=== PATIENT | female | born 1970 | race Caucasian/White ===

== ENCOUNTER → 2020-01-01 09:20 | Outpatient (CLI) | payer BC, SELFPAY ==
--- NOTE | ~2020-01-01 | CT_ITS ---
EXAMINATION: CT abdomen pelvis wo con EXAM DATE: 01/01/2020 09:35 INDICATION: Umbilical hernia without obstruction or gangrene. Prior surgery for hernia. Cholecystecto my and gastric sleeve procedure. TECHNIQUE: Spiral CT of the abdomen and pelvis was performed without contrast. Axial, coronal and s agittal images were reviewed. The dose-length product (DLP) for this examination was 522.94 mGy-cm. The exposure was tailored according to patient size (auto mA exposure control), and iterative recons truction (ASIR) was used as additional dose reduction technique. Comparison is made to prior examinat ion from 12/12/2017. FINDINGS: Anterior abdominal wall mesh material identified, no evidence of hernia recurrence. The lar gest liver cyst is in the left liver lobe lateral segment, measures 3.4 cm. The spleen, pancreas, an d adrenal glands are unremarkable. There are cholecystectomy clips. There is no nephrolithiasis or hydronephrosis. There is IUD which appears to be centrally located within the endometrium, expected position. The bladder is undistended at time of imaging. There is no retroperitoneal or pelvic lym phadenopathy. The appendix is normal. There are surgical changes consistent with gastric sleeve procedure, suture material along the greater curvature of the stomach. There is moderate amount of colonic stool. No free intraperitoneal gas. The heart is normal in size. There are no pericardial or pleural effusi ons. The lung bases are unremarkable. The bones are unremarkable. IMPRESSION: 1. Moderate amount of colonic stool. 2. Surgical changes. Reviewed, dictated and finalized at location B.
== END ==
PROVIDERS: Visit Provider Surgery Plastic and Reconstructive Surgery
DX: K42.9 Umbilical hernia without obstruction or gangrene (principal)
CPT/HCPCS: 74176

== ENCOUNTER 2020-01-22 14:57 | Outpatient (CLI) | payer BC, SELFPAY ==
--- NOTE | ~2020-01-22 | MM_ITS ---
EXAMINATION: MM screening aaron BI w lizeth HISTORY: Screening TECHNIQUE: Craniocaudal and mediolateral oblique 3-D tomosynthesis images were obtained and synthetic 2-D images were generated. CAD analysis was submitted and interpreted. COMPARISON: Comparison to multiple prior studies sequentially, with oldest reviewed study dated 07/26. BREAST PARENCHYMAL COMPOSITION: The breasts are heterogenously dense, which may obscure small masses. FINDINGS: There is no evidence of suspicious mass, calcification, or architectural distortion to sugg est malignancy in either breast. There has been no suspicious interval change. IMPRESSION: 1. No mammographic evidence of malignancy. 2. Recommend routine screening mammography in one year. BI-RADS Category 1: Negative Reviewed, dictated and finalized at location A.
== END 2020-01-22 14:58 | disposition home or self-care (01) ==
LOC: ANHIMG 15:01
PROVIDERS: PCP Nurse Practitioner Adult Health; Referring Provider Surgery Plastic and Reconstructive Surgery; Visit Provider Obstetrics & Gynecology
DX: Z12.31 Encounter for screening mammogram for malignant neoplasm of breast (principal)
CPT/HCPCS: 77063; 77067

== ENCOUNTER 2020-02-21 14:55 | Outpatient (CLI) | payer OTHER, SELFPAY ==
--- NOTE | 2020-02-21 14:56 | ECG_ITS ---
Measurements Intervals [place] Rate: 73 P: 2 NC: 124 QRS: -10 QRSD: 99 T: 15 QT: 379 QTc: 420 Interpretive Statements SINUS RHYTHM INCOMPLETE RIGHT BUNDLE BRANCH BLOCK DELAYED PRECORDIAL R/S TRANSITION BASELINE ARTIFACT- I, II, III, AVR, AVL, AVF BORDERLINE ECG Electronically Signed On 02-21-2020 16:48:40 CDT by Juilo Leija D.O.
[2020-02-21 15:30] LABS: Hematocrit 36.8 % (37.0-47.0); Hemoglobin 12.2 g/dL (12.0-15.0)
[2020-02-21 15:42] LABS: Albumin Level 3.8 g/dL (3.5-5.1)
[2020-02-21 15:52] LABS: Prealbumin 26.6 mg/dL (17.6-36.0)
[2020-02-21 16:57] LABS: Iron 84 ug/dL (37-170)
[2020-02-27 13:15] LABS: Vitamin B1 15 nmol/L (8-30)
== END 2020-02-21 14:56 | disposition home or self-care (01) ==
LOC: ANHSURGERY 14:56
PROVIDERS: Anesthesiology; PCP Nurse Practitioner Adult Health; Visit Provider Surgery Plastic and Reconstructive Surgery
DX: L57.4 Cutis laxa senilis (principal); Z01.818 Encounter for other preprocedural examination
CPT/HCPCS: 36415; 82040; 83540; 84134; 84425; 85014; 85018; 93005

== ENCOUNTER 2020-02-26 00:25 | Outpatient (CLI) | payer SELFPAY ==
[2020-02-26 19:00] LABS: SARS-CoV-2 RNA PCR Negative
== END 2020-02-26 00:26 | disposition home or self-care (01) ==
LOC: ANHCOVIDDT 00:25
PROVIDERS: PCP Nurse Practitioner Adult Health; Visit Provider Surgery Plastic and Reconstructive Surgery
DX: Z01.812 Encounter for preprocedural laboratory examination (principal); Z11.59 Encounter for screening for other viral diseases
CPT/HCPCS: 87635; C9803; U0003

== ENCOUNTER 2020-02-28 00:01 | Day surgery (SDC) | payer OTHER, SELFPAY ==
[2020-02-18 15:18] VITALS: BMI 26.4
[2020-02-28] VITALS (13 sets, daily range): BP systolic 108–173; BP diastolic 74–105; PULSE 74–93; RESP 12–20; TEMP 36.3–36.9; O2SAT 91–100
[2020-02-28 09:55] LABS: Urine Cotinine NEGATIVE
[2020-02-28] MEDS: LACTATED RINGERS 1,000 ML 30 ML IV CONT ×2 (09:55→17:33)
--- NOTE | 2020-02-28 09:57 | WPDANESEPPF ---
Anes - Initial Pre Proc Eval Procedure: Operation Date: 02/28/20 11:30 Proposed Procedures p Edith De Lis Abdominoplasty - Dimitry Saez MD s Bilateral Mastopexy With Galaflex - Dimitry Saez MD Date/Time: 02/28/20 09:57 Surgeon: Dimitry Saez MD Pre Op Diagnosis: Skin Laxity Patient Data Age: 49 Gender: F Height: 5 ft Weight: 61.5 kg Allergies Allergy/AdvReac Type Severity Reaction Status Date / Time aspirin Allergy Severe Swelling Verified 02/18/20 15:08 of Lip/Tongue/Throat ketorolac Allergy Severe Swelling Verified 02/18/20 15:08 of Lip/Tongue/Throat ibuprofen Allergy Swelling Verified 02/18/20 15:08 of Lip/Tongue/Throat Home Medications Medication Instructions Recorded Confirmed Type bupropion HCl 150 mg tablet,12 hr 150 mg PO DAILY 09/10/19 02/18/20 History sustained-release fingolimod 0.5 mg capsule 0.5 mg PO DAILY 09/10/19 02/18/20 History liraglutide (weight loss) 3 mg/0.5 3 mg SUB-Q DAILY 09/10/19 02/18/20 History mL (18 mg/3 mL) subcut pen injector oxybutynin chloride 10 mg 10 mg PO DAILY 09/10/19 02/18/20 History tablet,extended release 24 hr levothyroxine 100 mcg tablet 100 mcg PO DAILY #90 tablet 01/02/20 02/18/20 Rx docusate sodium 100 mg capsule 100 mg PO DAILY #14 cap 02/19/20 Rx oxycodone-acetaminophen 5 mg-325 1 tablet PO Q6H PRN #15 tablet 02/20/20 02/20/20 Rx mg tablet Laboratory Tests 02/28/20 09:34 Cotinine Negative Patient hx anesthesia problems: post op nausea/vomiting Family hx anesthesia problems: none PMFSH Past Medical History Medical History Anxiety Hypothyroid Multiple sclerosis Surgical History Surgical History History of 2 sections 2004, 2006 History of cholecystectomy 2018 History of gastric restrictive surgery 2010 History of hernia repair 2018 History of hip surgery 2019 Family History Family History Other Hypertension Social History Social History Smoking status: Never smoker Alcohol intake: current Substance use: never Living arrangements: with family Spiritual care concerns: No Anes - Eval Final PreProcedure Day of Procedure 02/28/20 09:57 Patient weight: normal Heart: regular rate and rhythm Lungs: clear to auscultation Airway: Mallampati scale class II Neurological: alert and oriented Last oral intake: >/= 8 hours ASA classification: III Emergent: no Anesthetic plan: proceed Anesthesia type and monitoring: general LMA and standard monitoring Informed Consent: The patient's anesthetic plan and its attendant risks and benefits were discussed with the patient/family/POA. Questions were solicited and answers provided to the satisfaction of the patient/family/POA.
[2020-02-28] MEDS: SCOPOLAMINE 1.5 MG PATCH TRANSDERM (10:00)
--- NOTE | 2020-02-28 10:31 | SUR.PREOP ---
PT INFORMED OF DELAY W/SURGEON/ACKNOWLEDGES UNDERSTANDING/COMFORT MEASURES PROVIDED.
--- NOTE | 2020-02-28 10:35 | SUR.PREOP ---
AMBULATED TO BATHROOM W/MINIMAL ASSISTANCE
--- NOTE | 2020-02-28 11:54 | WPDHPUPDATE1 ---
History and Physical Update Update Date/Time: 02/28/20 11:54 History and Physical has been reviewed, including an updated exam of the patient. There are NO changes in the patient's condition. Risks, benefits, and alternatives have been discussed and questions answered. Patient agrees to proceed with procedure.
--- NOTE | 2020-02-28 12:11 | SUR.PREOP ---
1200; IN ROOM WHILE DR CHE MARKED PT
--- NOTE | 2020-02-28 12:24 | PM.PROC ---
Procedure Note - Detailed Date of procedure: 02/28/20 Pre-op diagnosis: Skin Laxity Post-op diagnosis: same Procedure performed: 1. Bilateral mastopexy with Galaflex 2. Edith shore abdominoplasty. Description of procedure: Risks, benefits, alternatives were discussed in extensive detail. I want her to be very realistic about the risks involved as well as expectations. Made sure answered of her questions to her satisfaction and consent obtained. Patient was marked in the preoperative holding area with her verification. She was taken to the operating room placed supine on the operating room table. Anesthesia was provided by anesthesiology and prepped and draped in a standard sterile fashion. Surgical time-out was taken. 1% lidocaine and 0.25% Marcaine with epinephrine was used to do a field block as of breast. I verified my markings and tailor tacked the breast into position. I placed the patient in a sitting position. Marked out the nipple-areolar complex based on her preoperative markings intraoperative observations and measurements which were all in full agreement. Once I was confident with these markings Patient was placed supine. I de-epithelialized the superior medial pedicle. I de-epithelialized the remainder of that tissue as well. I did an auto augmentation flap using the inferior portion of the breast on the intercostal perforators which was tacked to the chest wall and sutured into place with 2-0 PDS. I then elevated medial and lateral flaps. Copiously irrigated with saline solution and verified a strict hemostasis. Galaflex was soaked in a Betadine antibiotic solution. It was trimmed as necessary and tacked into place with 2-0 Vicryl. I then tailor tacked the breast into place. I closed using 2-0 Vicryl, 3-0 strata fix along the IMF and 3-0 Monocryl along the vertical as around the areola. I then ran everything with a running subcuticular 4-0 Monocryl and tissue glue. I placed the patient in a flexed position to verify the upper and lower markings would reach. I then placed her supine. A thorough abdominal examination was completed. Stab incisions were made and used tumescent solution. A 10 blade was used to make the upper incision. I continued dissection down to the level of fascia. Elevated just what was necessary for repair of the diastasis and discontinuous undermining otherwise. I resected the plan vertical resection with the taco abdominoplasty this was repaired with 2-0 Vicryl followed by 3-0 Monocryl. I then again flexed the bed to verify the upper skin flap would reach the lower markings without tension. Once verified I placed her supine once again and a 10 blade used to make the lower incision. I elevated up to level the umbilicus and left the umbilicus intact on a well-vascularized stalk. The intervening tissue was removed. A 2 mm blunt cannula and Exparel which was mixed 20 cc in 100 cc for a total volume of 120 cc I injected deep to the fascia bilaterally as well as along the incision lines. I plicated the diastasis recti using 0 PDO stratafix barbed suture. This was in 2 separate layers using 2 separate sutures as well. I repaired around the umbilicus leaving plenty of room for well-vascularized stalk of the umbilicus with 2-0 PDS. The patient was flexed and starting from superior to inferior began plication using 2-0 Vicryl to obliterate all space in a standard progressive tension fashion. At the umbilicus I marked out the location of the skin and inset this with 3-0 Monocryl and 4-0 nylon. I continued the remainder of the plication using 2-0 Vicryl until I reached my lower planned scar line. I trimmed any excess skin of the upper flap making sure this was a tension-free closure. I then approximated using a 3 point suture with 2-0 Vicryl followed by 3-0 stratafix ,running subcuticular 4-0 Monocryl, and tissue glue. Fluffs and an abdominal binder were placed. The patient was transferred to the
[2020-02-28] MEDS: ceFAZolin 2 GM/D5W 50 ML 2 GM/50 ML BAG IVPB (12:33)
[2020-02-28] MEDS: HYDROmorphone HCL INJ (*CRX) 1 MG/ML SYR 5 MG IV PUSH ×2 (18:00→18:10)
[2020-02-28] MEDS: LACTATED RINGERS 1,000 ML 125 ML IV CONT (19:01)
--- NOTE | 2020-02-28 19:23 | PC.NURSE ---
This patient, Corrie Ashton, was received from [facility] on 02/28/20 at 1840. Personal belongings list checked and signed. Patient/family oriented to unit policies and routines
[2020-02-28] MEDS: MORPHINE SULFATE (*CRX) 2 MG/ML INJ IV PUSH (20:02)
[2020-02-28] MEDS: ONDANSETRON INJ 4 MG/2 ML VIAL IV PUSH (20:02)
[2020-02-29] MEDS: carisoprodoL (*CRX) 350 MG TABLET PO ×3 (00:31→13:33)
[2020-02-29] MEDS: ENOXAPARIN 40 MG/0.4 ML SYRINGE SUB-Q (00:31)
[2020-02-29] MEDS: oxyCODONE/ACETAMINOPHEN (*CRX) 5-325 MG TABLET PO ×3 (00:31→13:33)
[2020-02-29 04:23] VITALS: BP 106/58; PULSE 80; RESP 16; TEMP 37; O2SAT 98
[2020-02-29 07:30] VITALS: BP 100/60; PULSE 86; RESP 16; TEMP 37; O2SAT 100
--- NOTE | 2020-02-29 07:42 | WPDPN ---
Progress Note: A&P Assessment and Plan (1) Encounter for cosmetic procedure: Code(s): Z41.1 - Encounter for cosmetic surgery Status: Acute Assessment and Plan: She is doing very well after mastopexy and [id number] abdominoplasty. Will discharge home. Today we had a lengthy discussion about the care. What monitor for. She understands the importance of ambulation. She is going to use this for her DVT prophylaxis after discharge home. She has a full list of instructions. This was a lengthy open-ended conversation answering all of her questions. Made sure she knew what was an emergency and went to dial 911/ proceed to the emergency room. She understands for other questions we are always available. I will see her back. (2) History of gastric restrictive surgery: Code(s): Z98.84 - Bariatric surgery status Status: Acute Review of Systems Review of Systems: All systems reviewed & are unremarkable except as noted in HPI and below Exam Narrative: Exam Narrative: Bilateral breasts are soft. No signs of infection. No hematoma. No seroma. Good color and capillary refill. Abdomen is healing well. No signs of infection. No hematoma. Seroma. Good color and capillary refill. No calf tenderness. Negative Homans. Const: General: comfortable, no acute distress, alert and awake; No acute distress Orientation/consciousness: oriented to person HENMT: Head: normal to inspection Ears: external ears normal General nose exam: Normal external nose present Face and sinus: normal facial exam Eyes: General: appearance normal, both eyes and all related structures Periorbital: periorbital findings normal Eyelids: eyelids normal Conjunctivae: conjunctivae normal Neck: Neck: normal visual inspection Chest: Chest palpation & inspection: normal inspection of the chest Resp: Effort & Inspection: normal respiratory effort and able to speak in complete sentences GI: Inspection: normal to inspection Neuro: General: oriented to person Psych: Appearance: grossly normal Mental Status: mental status grossly normal Objective Data Vital Signs Vital Signs: Vital Signs - 24 hr 02/28/20 09:36 02/28/20 17:33 02/28/20 17:50 Temperature 36.7 C 36.3 C L Pulse Rate 83 78 80 Respiratory Rate 20 12 16 Blood Pressure 173/105 H 133/77 148/88 H Pulse Oximetry 100 100 100 02/28/20 18:05 02/28/20 18:20 02/28/20 19:03 Temperature Pulse Rate 82 87 91 Respiratory Rate 12 12 Blood Pressure 146/85 H 137/91 H 142/74 H Pulse Oximetry 100 100 93 02/28/20 19:15 02/28/20 19:30 02/28/20 20:00 Temperature 36.9 C Pulse Rate 93 89 91 Respiratory Rate 14 Blood Pressure 136/85 124/87 127/83 Pulse Oximetry 91 92 94 02/28/20 20:30 02/28/20 21:00 02/28/20 22:00 Temperature Pulse Rate 74 83 83 Respiratory Rate Blood Pressure 126/78 121/78 113/77 Pulse Oximetry 94 94 93 02/28/20 23:20 02/29/20 04:23 Temperature 36.6 C 37.0 C Pulse Rate 81 80 Respiratory Rate 16 16 Blood Pressure 108/75 106/58 L Pulse Oximetry 96 98 Intake/Output Intake/Output: Intake & Output 02/26/20 02/27/20 02/28/20 02/29/20 23:59 23:59 23:59 23:59 Intake Total 250 500 Output Total 200 500 Balance 50 0 Meds/Results Medications: Active Medications Generic Name Dose Route Start Last Admin Trade Name Freq PRN Reason Stop Dose Admin Carisoprodol 350 mg 02/28/20 18:00 02/29/20 06:55 Carisoprodol (*Crx) 350 Mg Tablet PO 350 mg Q6HR ODETTE Administration Docusate Sodium 100 mg 02/28/20 21:00 02/28/20 19:18 Docusate Sodium 100 Mg Capsule PO Not Given Q12HR [facility] Enoxaparin Sodium 40 mg 02/28/20 23:00 02/29/20 00:31 Enoxaparin 40 Mg/0.4 Ml Syringe SUB-Q 40 mg DAILY@2300 ODETTE Administration Lactated Ringer's 1,000 mls @ 125 mls/hr 02/28/20 17:15 02/29/20 00:33 Lr - Lactated Ringers Iv IV CONT Not Given .Q8H [facility] Levothyroxine Sodium 100 mcg 02/29/20
--- NOTE | 2020-02-29 07:52 | P.DS_ITS ---
DS: Admitting Diagnosis Admitting Diagnosis Admitting Diagnosis: Skin Laxity DS: Discharge Diagnosis Discharge Diagnosis (1) Encounter for cosmetic procedure: Code(s): Z41.1 - Encounter for cosmetic surgery Status: Acute Assessment and Plan: Doing very well after mastopexy and [id number] abdominoplasty. Will discharge home. Follow-up. Call with any questions or concerns. See discharge directions below. (2) History of hernia repair: Code(s): Z98.890 - Other specified postprocedural states; Z87.19 - Personal history of other diseases of the digestive system Status: Acute (3) History of gastric restrictive surgery: Code(s): Z98.84 - Bariatric surgery status Status: Acute DS: Summary Time Spent with Patient Time attestation: Total time spent providing and/or coordinating discharge services: 20 minutes Exam Narrative: Exam Narrative: Bilateral breasts are soft. No signs of infection. No hematoma. No seroma. Good color and capillary refill. Abdomen is healing well. No signs of infection. No hematoma. Seroma. Good color and capillary refill. No calf tenderness. Negative Homans. Const: General: comfortable, no acute distress, alert and awake; No acute distress Orientation/consciousness: oriented to person HENMT: Head: normal to inspection Ears: external ears normal General n ose exam: Normal external nose present Face and sinus: normal facial exam Eyes: General: appearance normal, both eyes and all related structures Periorbital: periorbital findings normal Eyelids: eyelids normal Conjunctivae: conjunctivae normal Neck: Neck: normal visual inspection Chest: Chest palpation & inspection: normal inspection of the chest Resp: Effort & Inspection: normal respiratory effort and able to speak in complete sentences GI: Inspection: normal to inspection Neuro: General: oriented to person Psych: Appearance: grossly normal Mental Status: mental status grossly normal DS: Data Data Completed and Pending Labs on day of discharge: Labs from last 24 hours 02/28/20 09:34 Cotinine Negative Discharge Plan Discharge Patient Disposition: Home, Self-Care Discharge Instructions: POST OPERATIVE DISCHARGE INSTRUCTIONS FOR Mastopexy / Abdominoplasty DREW CHE M.D. [facility] [address] [place] [address] * No driving for 24 hours after anesthesia and while you are taking pain medication. * Take all prescribed medication as directed * Diet as tolerated. * No lifting or activity that raises blood pressure for 48 hours. * Regular walking / ambulation. * No showering until directed to. Once you shower do not take pain medication before showering as the combination of medication and heat may cause you to feel dizzy or pass out. * No pools or tubs for 2 weeks. * Call with any questions or concerns. * Slowly stand up straight over the week as tolerated. * No lifting more than 20 pounds / straining for 6 weeks. * Remove the Scopolamine patch that was placed behind your ear in 72 hours or less. Wash your hands after touching. * Dressing Care: Continue abdominal binder / surgical bra 23 hour
--- NOTE | 2020-02-29 07:52 | PM.DS ---
DS: Admitting Diagnosis Admitting Diagnosis Admitting Diagnosis: Skin Laxity DS: Discharge Diagnosis Discharge Diagnosis (1) Encounter for cosmetic procedure: Code(s): Z41.1 - Encounter for cosmetic surgery Status: Acute Assessment and Plan: Doing very well after mastopexy and [id number] abdominoplasty. Will discharge home. Follow-up. Call with any questions or concerns. See discharge directions below. (2) History of hernia repair: Code(s): Z98.890 - Other specified postprocedural states; Z87.19 - Personal history of other diseases of the digestive system Status: Acute (3) History of gastric restrictive surgery: Code(s): Z98.84 - Bariatric surgery status Status: Acute DS: Summary Time Spent with Patient Time attestation: Total time spent providing and/or coordinating discharge services: 20 minutes Exam Narrative: Exam Narrative: Bilateral breasts are soft. No signs of infection. No hematoma. No seroma. Good color and capillary refill. Abdomen is healing well. No signs of infection. No hematoma. Seroma. Good color and capillary refill. No calf tenderness. Negative Homans. Const: General: comfortable, no acute distress, alert and awake; No acute distress Orientation/consciousness: oriented to person HENMT: Head: normal to inspection Ears: external ears normal General nose exam: Normal external nose present Face and sinus: normal facial exam Eyes: General: appearance normal, both eyes and all related structures Periorbital: periorbital findings normal Eyelids: eyelids normal Conjunctivae: conjunctivae normal Neck: Neck: normal visual inspection Chest: Chest palpation & inspection: normal inspection of the chest Resp: Effort & Inspection: normal respiratory effort and able to speak in complete sentences GI: Inspection: normal to inspection Neuro: General: oriented to person Psych: Appearance: grossly normal Mental Status: mental status grossly normal DS: Data Data Completed and Pending Labs on day of discharge: Labs from last 24 hours 02/28/20 09:34 Cotinine Negative Discharge Plan Discharge Patient Disposition: Home, Self-Care Discharge Instructions: POST OPERATIVE DISCHARGE INSTRUCTIONS FOR Mastopexy / Abdominoplasty DIMITRY SAEZ M.D. [facility] [address] [place] [address] [address] for 24 hours after anesthesia and while you are taking pain medication. Take all prescribed medication as directed Diet as tolerated. No lifting or activity that raises blood pressure for 48 hours. Regular walking / ambulation. No showering until directed to. Once you shower do not take pain medication before showering as the combination of medication and heat may cause you to feel dizzy or pass out. No pools or tubs for 2 weeks. Call with any questions or concerns. Slowly stand up straight over the week as tolerated. No lifting more than 20 pounds / straining for 6 weeks. Remove the Scopolamine patch that was placed behind your ear in 72 hours or less. Wash your hands after touching. Dressing Care: Continue abdominal binder / surgical bra 23 hours per day. If you have any questions or concerns, please call the office . If it is after hours you will be directed to the financial services professional exchange. Shortness of breath, chest pain, or other medical emergency dial 911 / proceed to the Emergency Room. Stand Alone Forms: General Discharge Instructions Follow-up/Referrals: Dimitry Saez MD [Physician] - 1 Week Discharge Medications: Continued levothyroxine [Levoxyl] 100 mcg tablet 100 mcg PO DAILY Qty: 90 RF: 5 docusate sodium [Colace] 100 mg capsule 100 mg PO DAILY Qty: 14 RF: 0 oxycodone-acetaminophen [Percocet] 5-325 mg tablet 1 tablet PO Q6H PRN (Reason: pain) Qty: 15 RF: 0 Gilenya 0.5 mg capsule 0.5 mg PO DAILY RF: 0
--- NOTE | 2020-02-29 09:11 | WPDANESPN ---
Anes - Prog Note Post-Op Date/Time: 02/29/20 09:11 Cardiovascular status: normal Respiratory status: normal Airway patency: baseline Mental status: baseline Post-Op hydration status: normal Vital Signs: Last Vital Signs Temp 37.0 C 02/29/20 07:30 Pulse 86 02/29/20 07:30 Resp 16 02/29/20 07:30 BP 100/60 02/29/20 07:30 Pulse Ox 100 02/29/20 07:30 Pain Score (VAS): 3 I/O: Intake & Output 02/28/20 02/29/20 02/29/20 23:59 07:59 15:59 Intake Total 200 500 Output Total 200 500 Balance 0 0 02/28/20 09:34 Cotinine Negative Post-procedural complaints: none Patient Feedback: Patient satisfied with anesthetic care.
[2020-02-29 10:15] VITALS: PULSE 86; RESP 16; O2SAT 100
[2020-02-29] MEDS: LACTATED RINGERS 1,000 ML 125 ML IV CONT (15:30)
--- NOTE | 2020-02-29 17:19 | PC.NURSE ---
1200 Pt feels unable to drink a lot of fluids due to gastric sleeve surgery, requests IV fluids. LR hung at 500cc/hr. 1300 Unable to void. Another 500cc/hr started. 1400 After 1000cc infused still unable to void. Bladder scanned highest measurement was 91cc. 1500 Dr. Vega informed of above. orders received. 1530 Third 500cc bolus started. 1645. Bladder scanned, 335cc urine measured. Pt voided 100cc. Dr. Vega notified. Requested that pt receive the additional 500cc and then be discharged to home after infusion complete.
== END 2020-02-29 18:25 | disposition home or self-care (01) ==
LOC: ANHSURGERY 10:06 → ANHOB2 18:39
PROVIDERS: PCP Nurse Practitioner Adult Health; Visit Provider Surgery Plastic and Reconstructive Surgery
PROC: (CPT 19316; principal; 2020-02-28 11:30)
PROC: (CPT 19316; 2020-02-28 11:30)
DX: Z41.1 Encounter for cosmetic surgery (principal); L57.4 Cutis laxa senilis; Z98.84 Bariatric surgery status; E03.9 Hypothyroidism, unspecified; G35 Multiple sclerosis; F41.9 Anxiety disorder, unspecified; Z79.899 Other long term (current) drug therapy
CPT/HCPCS: 19316; 15777 ×2; 15830; 15847; 80307; 99199; A9270; C9290; J0171; J0330; J0690; J1100; J1170; J1580; J1650; J2250; J2270; J2405; J2704; J3010; J7120

== ENCOUNTER 2021-01-20 01:09 | Day surgery (SDC) | payer BC, SELFPAY ==
[2021-01-07 13:58] VITALS: BMI 26.4
--- NOTE | 2021-01-20 07:49 | WPDANESEPPF ---
Anes - Initial Pre Proc Eval Procedure: Operation Date: 01/20/21 09:45 Proposed Procedures p Screening Colonoscopy - Arik Christine MD Date/Time: 01/20/21 07:49 Surgeon: Arik Christine MD Pre Op Diagnosis: neoplasm screening Z12.11 Patient Data Age: 50 Gender: F Height: 1.52 m Weight: 61.5 kg Allergies Allergy/AdvReac Type Severity Reaction Status Date / Time aspirin Allergy Severe Swelling Verified 01/20/21 08:31 of Lip/Tongue/Throat ketorolac Allergy Severe Swelling Verified 01/20/21 08:31 of Lip/Tongue/Throat ibuprofen Allergy Swelling Verified 01/20/21 08:31 of Lip/Tongue/Throat Home Medications Medication Instructions Recorded Confirmed Type bupropion HCl 150 mg tablet,12 hr 150 mg PO DAILY 09/10/19 01/20/21 History sustained-release fingolimod 0.5 mg capsule 0.5 mg PO DAILY 09/10/19 01/20/21 History oxybutynin chloride 10 mg 10 mg PO DAILY 09/10/19 01/20/21 History tablet,extended release 24 hr levothyroxine 100 mcg tablet 100 mcg PO DAILY #90 tablet 01/02/20 01/20/21 Rx Patient hx anesthesia problems: none Family hx anesthesia problems: none PMFSH Past Medical History Medical History Anxiety Hypothyroid Multiple sclerosis Surgical History Surgical History History of 2 sections 2004, 2006 History of cholecystectomy 2018 History of gastric restrictive surgery 2010 History of hernia repair 2018 History of hip surgery 2019 Family History Family History Other Hypertension Social History Social History Smoking status: Never smoker Alcohol intake: current Substance use: never Substance use type: does not use Living arrangements: with family Gender identity (if verbalized by the patient): Female Spiritual care concerns: No Anes - Eval Final PreProcedure Day of Procedure 01/20/21 07:49 Patient weight: overweight Heart: regular rate and rhythm Lungs: clear to auscultation and normal air movement Airway: Mallampati scale class II Neurological: alert and oriented Last oral intake: >/= 8 hours ASA classification: III Emergent: no Anesthetic plan: proceed Anesthesia type and monitoring: general GIVS and standard monitoring Informed Consent: The patient's anesthetic plan and its attendant risks and benefits were discussed with the patient/family/POA. Questions were solicited and answers provided to the satisfaction of the patient/family/POA.
[2021-01-20 08:34] VITALS: BP 181/92; PULSE 77; RESP 18; TEMP 36.8; O2SAT 100
[2021-01-20] MEDS: LACTATED RINGERS 1,000 ML 150 ML IV CONT (08:37)
--- NOTE | 2021-01-20 09:30 | PM.HPGS ---
History of Present Illness History of Present Illness Consent: Risks, benefits, and alternatives have been discussed and questions answered. Patient agrees to proceed with procedure. Chief complaint: neoplasm screening Z12.11 Narrative: Corrie Ashton is a 50 year old female here for first screening colonoscopy Review of Systems Constitutional: Constitutional: Denies headache(s) and Denies weakness Eyes: Eyes: Denies blurry vision ENT: Reports Normal hearing present, Denies headache(s) and Denies neck pain Cardiovascular: Cardiovascular: Denies chest pain and Denies dyspnea Respiratory: Respiratory: Denies dyspnea Gastrointestinal: Gastrointestinal: Reports no additional gastrointestinal complaints Genitourinary: Genitourinary: Denies dysuria Musculoskeletal: Musculoskeletal: Denies neck pain Integumentary/Breasts: Skin/Breast: Denies dry skin Neurologic: Reports Normal hearing present, Denies headache(s) and Denies weakness Psychiatric: Psychiatric: Denies anxiety Endocrine: Endocrine: Denies change in body appearance Hematologic/Lymphatic: Hematologic/Lymphatic: Denies easy bleeding Allergic/Immunologic: Allergic/Immunologic: Denies urticaria PMFSH Past Medical History Medical History (Updated 01/20/21 @ 09:30 by Arik Christine MD) Anxiety Colon cancer screening Hypothyroid Multiple sclerosis Surgical History Surgical History History of 2 sections 2004, 2006 History of cholecystectomy 2018 History of gastric restrictive surgery 2010 History of hernia repair 2018 History of hip surgery 2019 Family History Family History Other Hypertension Social History Social History Smoking status: Never smoker Alcohol intake: current Substance use: never Substance use type: does not use Living arrangements: with family Gender identity (if verbalized by the patient): Female Spiritual care concerns: No Meds Home Medications and Allergies Home Medications Medication Instructions Recorded Confirmed Type bupropion HCl 150 mg tablet,12 hr 150 mg PO DAILY 09/10/19 01/20/21 History sustained-release fingolimod 0.5 mg capsule 0.5 mg PO DAILY 09/10/19 01/20/21 History oxybutynin chloride 10 mg 10 mg PO DAILY 09/10/19 01/20/21 History tablet,extended release 24 hr levothyroxine 100 mcg tablet 100 mcg PO DAILY #90 tablet 01/02/20 01/20/21 Rx Allergies Allergy/AdvReac Type Severity Reaction Status Date / Time aspirin Allergy Severe Swelling Verified 01/20/21 08:31 of Lip/Tongue/Throat ketorolac Allergy Severe Swelling Verified 01/20/21 08:31 of Lip/Tongue/Throat ibuprofen Allergy Swelling Verified 01/20/21 08:31 of Lip/Tongue/Throat Vital Signs Vital Signs - 24 hr 01/20/21 08:34 Temperature 98.3 F Pulse Rate 77 Respiratory Rate 18 Blood Pressure 181/92 H Pulse Oximetry 100 Exam Const: General: comfortable and no acute distress HENMT: General nose exam: Normal nares present Eyes: General: appearance normal, both eyes and all related structures Neck: Neck: no JVD Resp: Auscultation: clear to auscultation bilaterally Cardio: Rate: regular rate Rhythm: regular rhythm GI: Inspection: non-distended GI Palp: Yes Soft to palpation Skin: General skin exam: normal color Neuro: General: gait normal Speech: normal speech Extrem: General: normal to inspection Psych: Mental Status: mental status grossly normal Assessment and Plan Assessment and plan (1) Colon cancer screening: Code(s): Z12.11 - Encounter for screening for malignant neoplasm of colon Status: Acute Assessment and Plan: colonoscopy
[2021-01-20 10:00] VITALS: BP 126/81; PULSE 66; RESP 23; O2SAT 100
[2021-01-20 10:10] VITALS: BP 136/84; PULSE 62; RESP 16; O2SAT 100
[2021-01-20 10:20] VITALS: BP 143/90; PULSE 61; RESP 18; O2SAT 99
== END 2021-01-20 10:33 | disposition home or self-care (01) ==
PROVIDERS: PCP Nurse Practitioner Adult Health; Visit Provider Internal Medicine Gastroenterology
PROC: 0DJD8ZZ Inspection of Lower Intestinal Tract, Via Natural or Artificial Opening Endoscopic (ICD-10-PCS; CPT 45378; principal; 2021-01-20 09:45)
DX: Z12.11 Encounter for screening for malignant neoplasm of colon (principal); K64.8 Other hemorrhoids; E03.9 Hypothyroidism, unspecified; G35 Multiple sclerosis; F41.9 Anxiety disorder, unspecified
CPT/HCPCS: 45378; J2001; J2704; J7120

== ENCOUNTER 2021-01-23 09:37 | Outpatient (CLI) | payer BC, SELFPAY ==
--- NOTE | ~2021-01-23 | MM_ITS ---
EXAMINATION: MM screening [facility] BI w lizeth HISTORY: Screening mammogram TECHNIQUE: Craniocaudal and mediolateral oblique 3-D tomosynthesis images were obtained and synthetic 2-D images were generated. CAD analysis was submitted and interpreted. COMPARISON: 01/22/2020, 09/02/2018, 08/29/2017 bilateral digital screening mammogram examinations BREAST PARENCHYMAL COMPOSITION: There are scattered areas of fibroglandular density. FINDINGS: There is interval postoperative change of the breasts following bilateral breast lift. There is focal fat necrosis in the posterior left mid to lower inner left breast. There are occasion al microcalcifications. There is no evidence of suspicious mass, calcification, or architectural dis tortion to suggest malignancy in either breast. There has been no suspicious interval change. IMPRESSION: 1. No mammographic evidence of malignancy. 2. Recommend routine screening mammography in one year. BI-RADS Category 2: Benign finding(s). Reviewed, dictated and finalized at location A.
== END 2021-01-23 09:38 | disposition home or self-care (01) ==
LOC: ANHIMG 09:39
PROVIDERS: PCP Nurse Practitioner Adult Health; Visit Provider Obstetrics & Gynecology
DX: Z12.31 Encounter for screening mammogram for malignant neoplasm of breast (principal)
CPT/HCPCS: 77063; 77067

== ENCOUNTER 2022-06-25 14:55 | Outpatient (CLI) | payer BC, SELFPAY ==
[2022-06-25 15:40] LABS: Hematocrit 35.4 % (37.0-47.0); Hemoglobin 11.8 g/dL (12.0-15.0); Mean Corpuscular HGB Conc 33.3 g/dl (32-36); Mean Corpuscular Hemoglobin 30.3 pg (26-34); Mean Platelet Volume 8.9 fl (7.4-10.4); Platelet Count Result 254 k/mm3 (150-375); Red Blood Count 3.89 M/mm3 (4.2-5.4); Red Cell Distribution Width 12.5 % (11.5-14.5); White Blood Count 2.5 K/mm3 (4.5-10.0)
[2022-06-25 15:44] LABS: Iron 66 ug/dL (37-170)
[2022-06-25 15:52] LABS: Albumin Level 4.2 g/dL (3.5-5.1); Anion Gap 4 mmol/L (8-16); Blood Urea Nitrogen 14 mg/dL (7-17); Calcium 8.4 mg/dL (8.4-10.2); Carbon Dioxide 30 mmol/L (22-30); Chloride 103 mmol/L (98-107); Estimated Glomerular Filt Rate > 60; Glucose 83 mg/dL (65-110); Potassium 3.9 mmol/L (3.4-5.0); Sodium 137 mmol/L (137-145)
[2022-06-25 15:59] LABS: Prealbumin 21.5 mg/dL (17.6-36.0)
[2022-07-01 15:08] LABS: Vitamin B1 16 nmol/L (8-30)
== END 2022-06-25 14:56 | disposition home or self-care (01) ==
LOC: ANHLAB 14:59
PROVIDERS: PCP Nurse Practitioner Adult Health; Visit Provider Surgery Plastic and Reconstructive Surgery
DX: R63.4 Abnormal weight loss (principal)
CPT/HCPCS: 36415; 80048; 82040; 83540; 84134; 84425; 85027

== ENCOUNTER 2022-07-16 14:39 | Outpatient (CLI) | payer BC, SELFPAY ==
--- NOTE | ~2022-07-16 | MM_ITS ---
EXAMINATION: MM screening [facility] BI w lizeth HISTORY: Screening TECHNIQUE: Craniocaudal and mediolateral oblique 3-D tomosynthesis images were obtained and synthetic 2-D images were generated. CAD analysis was submitted and interpreted. COMPARISON: Comparison to multiple prior studies sequentially, with oldest reviewed study dated 08/03. BREAST PARENCHYMAL COMPOSITION: The breasts are heterogeneously dense, which may obscure small masses FINDINGS: Interval development of clustered nonspecific calcifications in the upper outer quadrant of the right breast, middle third. There are 2 new clusters of calcifications in the left breast in the subareolar location and also posteriorly and inferiorly on the left MLO view. No suspicious masses o r architectural distortion. IMPRESSION: 1. Developing clusters of bilateral breast calcifications. 2. Magnification views are recommended. BI-RADS Category 0: Incomplete: Needs additional imaging evaluation. Reviewed, dictated and finalized at location B. 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
== END 2022-07-16 14:40 | disposition home or self-care (01) ==
LOC: ANHIMG 14:44
PROVIDERS: PCP Nurse Practitioner Family; Visit Provider Obstetrics & Gynecology
DX: Z12.31 Encounter for screening mammogram for malignant neoplasm of breast (principal); R92.8 Other abnormal and inconclusive findings on diagnostic imaging of breast
CPT/HCPCS: 77063; 77067

== ENCOUNTER 2022-07-16 15:03 | Outpatient (CLI) | payer BC, SELFPAY ==
--- NOTE | 2022-07-16 15:03 | ECG_ITS ---
Measurements Intervals [place] Rate: 70 P: 59 NJ: 131 QRS: 6 QRSD: 90 T: 45 QT: 377 QTc: 407 Interpretive Statements SINUS RHYTHM BASELINE ARTIFACT- I, II, III, AVR, AVL, AVF NORMAL ECG COMPARED TO ECG 02/21/2020 15:38:29 NO SIGNIFICANT CHANGES Electronically Signed On 07-16-2022 16:56:50 INSIDE TECHNICAL SALES REPRESENTATIVE by Julio Leija D.O.
== END 2022-07-16 15:04 | disposition home or self-care (01) ==
PROVIDERS: PCP Nurse Practitioner Family; Visit Provider Surgery Plastic and Reconstructive Surgery
DX: I10 Essential (primary) hypertension (principal); Z01.818 Encounter for other preprocedural examination
CPT/HCPCS: 93005

== ENCOUNTER 2022-07-23 01:07 | Day surgery (SDC) | payer OTHER, SELFPAY ==
[2022-07-14 14:21] VITALS: BMI 21.5
--- NOTE | 2022-07-14 14:45 | PC.NURSE ---
Report to the Outpatient Waiting Room, entrance under the green pavilion located off [facility], at time 8:00AM__ on date _07/23/22__. Planned Procedure Time: 10:00AM_. Time changes happen often and if your time is changed the preop area will call you the afternoon before. - You and your visitor will be asked to self-screen and do not enter if you have any COVID symptoms. - Only one visitor is requested with a max of two and NO children visitors are allowed at this time. - The patient visitor may be requested to leave or wait in car when not with patient due to distancing restrictions. - A mask is optional within the hospital at this time. Patients may have clear liquids (water, carbonated beverages, clear teas, apple juice) until 3 hours prior to surgery (7:00AM) with a maximum of 20 ounces. - No food from midnight until time of surgery Take the following medications with a SIP of water the morning of surgery: _BUPROPRION, LEVOTHYROXINE DO NOT STOP ANY OF YOUR OTHER PRESCRIPTION MEDICATIONS PRIOR TO SURGERY ?EXCEPT THE FOLLOWING Medications to discontinue per physician N/A Date to take last dose___N/A Please no make-up, nail slovenian, hairspray, perfume, deodorant, or body powder the day of surgery. No jewelry (including any body piercings) or valuables the day of surgery, leave them at home. Please take a shower or bath the night before, or the morning of, surgery with an antibacterial soap (HIBICLENS). Wear comfortable, loose fitting clothing. - Jewelry must be removed prior to entering the operating room. Rings and piercings that are not removed may be cut off. - The hospital will not accept responsibility for valuables. - Please leave all valuables, including medications, at home the day of surgery. If you are going home after surgery, a licensed lifter/driver must drive you home. - NO public transportation without another adult if you receive anesthesia. - We recommend that an adult stay with you for 24 hours following discharge. - We also recommend that you do not drive, make important decision, drink alcoholic beverages, or take any drugs that were not prescribed by your health care provider for at least 24 hours after your discharge time. Follow any additional instructions given to you from your surgeon. If you or anyone in your household have experienced Covid symptoms in the past week, please notify your surgeon or the nurse liaison at the phone number below for possible testing. Telephone instructions given to _JESSIEEVELINA__and asked if any additional questions and then verbalized understanding. Patient advised to call surgeon office or pre surgery nurse liaison [phone] if any additional questions.
[2022-07-23] VITALS (9 sets, daily range): BP systolic 149–179; BP diastolic 82–103; PULSE 75–92; RESP 14–20; TEMP 36.7–36.8; O2SAT 98–100
--- NOTE | 2022-07-23 08:24 | WPDHPUPDATE1 ---
History and Physical Update Update Date/Time: 07/23/22 08:24 History and Physical has been reviewed, including an updated exam of the patient. There are NO changes in the patient's condition. Risks, benefits, and alternatives have been discussed and questions answered. Patient agrees to proceed with procedure.
--- NOTE | 2022-07-23 08:25 | W.PM.PROC2 ---
Procedure Note - Detailed Date of Procedure 07/23/22 Pre-op Diagnosis skin laxity Post-op Diagnosis Same Procedure Performed Bilateral brachioplasty Surgeon Dimitry Saez MD Anesthesia General Findings Lipoaspirate: 300 cc Description of Procedure Here for the above procedures. Preoperatively risks, benefits, alternatives were discussed again today in extensive detail. I want to be very realistic about the risks involved as well as expectations. Made sure answered all of their questions to satisfaction. They voiced a clear understanding. Consent obtained. Patient was marked in the preoperative holding area with their verification. Taken to the operating placed supine on the operating table. Anesthesia was provided by anesthesiology. Prepped and draped in a standard sterile fashion. Surgical time-out was taken. Stab incisions were made and I tumesced with a tumescent solution. Once adequate time for hemostasis suction lipectomy was with a 4 mm basket cannula based on S.A.F.E. technique. This was completed based on preoperative planning, intraoperative observation, and rolling pinch test which was in full agreement. I completely de-fatted the planned resection area and a strip avulsion technique was completed. Starting proximal to distal a 10 blade was used to excise the intervening skin and this was tacked as we proceed to ensure good closure. This was closed using a 2-0 Quill, 3-0 strata fix, running subcuticular 4-0 Monocryl, and tissue glue. Dressings were placed. Tolerated the procedure well. Taken to the PACU without difficulty. All instrument sponge counts were correct at the end of the case. Estimated Blood Loss 50 Drains No Packing No Pathology None sent Complications No immediate complications Condition Stable Disposition PACU
--- NOTE | 2022-07-23 08:40 | WPDANESEPPF ---
Anes - Initial Pre Proc Eval Procedure: Operation Date: 07/23/22 10:00 Proposed Procedures p Bilateral Brachioplasty - Dimitry Saez MD Date/Time: 07/23/22 08:40 Surgeon: Dimitry Saez MD Pre Op Diagnosis: skin laxity Patient Data Age: 52 Gender: F Height: 1.52 m Weight: 50.5 kg Last Vital Signs Temp 36.8 C 07/23/22 08:35 Pulse 77 07/23/22 08:35 Resp 16 07/23/22 08:35 BP 166/96 H 07/23/22 08:35 Pulse Ox 100 07/23/22 08:35 O2 Del Method Room Air 07/23/22 08:35 Allergies Allergy/AdvReac Type Severity Reaction Status Date / Time aspirin Allergy Severe Swelling Verified 07/14/22 14:53 of Lip/Tongue/Throat ketorolac Allergy Severe Swelling Verified 07/14/22 14:53 of Lip/Tongue/Throat ibuprofen Allergy Swelling Verified 07/14/22 14:53 of Lip/Tongue/Throat Home Medications Medication Instructions Recorded Confirmed Type bupropion HCl 150 mg tablet,12 hr 150 mg PO DAILY 09/10/19 07/14/22 History sustained-release fingolimod 0.5 mg capsule (Gilenya) 0.5 mg PO DAILY 09/10/19 07/14/22 History oxybutynin chloride 10 mg 10 mg PO DAILY 09/10/19 07/14/22 History tablet,extended release 24 hr estradiol 1 mg tablet 1 mg PO DAILY 07/14/22 07/14/22 History levothyroxine 75 mcg tablet 75 mcg PO DAILY 07/14/22 07/14/22 History lisinopril 20 mg tablet 20 mg PO DAILY 07/14/22 07/14/22 History semaglutide (weight loss) 1.7 1.75 mg subcut WEEKLY 07/14/22 07/14/22 History mg/0.75 mL subcutaneous pen injector (Wegovy) Laboratory Tests 07/23/22 08:09 Cotinine Pending Patient hx anesthesia problems: none Family hx anesthesia problems: none Results Review: All pre-operative results and documents have been reviewed as part of the pre-operative evaluation. [facility] Past Medical History Medical History Anxiety Colon cancer screening Hypothyroid Multiple sclerosis Surgical History Surgical History History of 2 sections 2004, 2006 History of cholecystectomy 2018 History of gastric restrictive surgery 2010 History of hernia repair 2018 History of hip surgery 2019 Family History Family History Other Hypertension Social History Social History Smoking status: Never smoker Alcohol intake: never Substance use: never Substance use type: does not use Living arrangements: with family Gender identity (if verbalized by the patient): Female Spiritual care concerns: No Anes - Eval Final PreProcedure Day of Procedure 07/23/22 08:40 Patient weight: normal Heart: regular rate and rhythm Lungs: clear to auscultation Airway: Mallampati scale class II Neurological: alert and oriented Last oral intake: >/= 8 hours ASA classification: III Emergent: no Anesthetic plan: proceed Anesthesia type and monitoring: general LMA and standard monitoring Results Review: All pre-operative results and documents have been reviewed as part of the pre-operative evaluation. Informed Consent: The patient's anesthetic plan and its attendant risks and benefits were discussed with the patient/family/POA. Questions were solicited and answers provided to the satisfaction of the patient/family/POA.
[2022-07-23] MEDS: LACTATED RINGERS 1,000 ML 30 ML IV CONT ×2 (09:01→11:37)
[2022-07-23] MEDS: SCOPOLAMINE 1.5 MG PATCH TRANSDERM (09:01)
[2022-07-23] MEDS: ceFAZolin 2 GM/D5W 50 ML 2 GM/50 ML BAG IVPB (09:02)
[2022-07-23 09:04] LABS: Urine Cotinine NEGATIVE
[2022-07-23] MEDS: TRANEXAMIC ACID 1,000MG/ISO100 1,000 MG/100 ML BAG 200 MG IVPB (09:18)
[2022-07-23] MEDS: LACTATED RINGERS IRRIG 1,000 ML, LIDOCAINE HCL 1% LOCAL INJ 50 ML, EPINEPHrine HCL INJ ... INFILTRATE (10:41)
== END 2022-07-23 13:25 | disposition home or self-care (01) ==
PROVIDERS: PCP Nurse Practitioner Family; Visit Provider Surgery Plastic and Reconstructive Surgery
PROC: (CPT 15836; principal; 2022-07-23 10:00)
DX: L57.4 Cutis laxa senilis (principal); I10 Essential (primary) hypertension; E03.9 Hypothyroidism, unspecified
CPT/HCPCS: 15878 ×2; 80307; A9270; J0171; J0690; J2250; J2704; J3010; J7120

== ENCOUNTER 2022-09-17 13:54 | Outpatient (CLI) | payer BC, SELFPAY ==
--- NOTE | ~2022-09-17 | MM_ITS ---
EXAMINATION: MM diagnostic [facility] BI w lizeth HISTORY: Bilateral breast calcifications on screening mammogram TECHNIQUE: Magnification views of the breasts were performed and synthetic 2-D images were generated. CAD analysis was submitted and interpreted. COMPARISON: 07/16/2022, 01/23/2021, 01/22/2020 BREAST PARENCHYMAL COMPOSITION: There are scattered areas of fibroglandular density. FINDINGS: Magnification views demonstrate bilateral dystrophic calcifications, most consistent with h istory of reduction mammoplasty. No suspicious mass, calcification, or architectural distortion are i dentified. IMPRESSION: 1. No mammographic evidence of malignancy. 2. Recommend routine screening mammography in one year. BI-RADS Category 2: Benign finding(s). Reviewed, dictated and finalized at location A.
== END 2022-09-17 13:55 | disposition home or self-care (01) ==
LOC: ANHIMG 13:57
PROVIDERS: PCP Nurse Practitioner Family; Visit Provider Obstetrics & Gynecology
DX: R92.8 Other abnormal and inconclusive findings on diagnostic imaging of breast (principal)
CPT/HCPCS: 77062; 77066; G0279

== ENCOUNTER 2023-09-22 14:31 | Outpatient (CLI) | payer BC, SELFPAY ==
--- NOTE | ~2023-09-22 | MM_ITS ---
EXAMINATION: MM screening [facility] BI w lizeth HISTORY: Screening mammogram TECHNIQUE: Craniocaudal and mediolateral oblique 3-D tomosynthesis images were obtained and synthetic 2-D images were generated. CAD analysis was submitted and interpreted. COMPARISON: 09/17/2022 bilateral diagnostic and bilateral screening 07/16/2022, 01/23/2021 [facility] BREAST PARENCHYMAL COMPOSITION: There are scattered areas of fibroglandular density. No FINDINGS: History of bilateral breast lift in 2019. Occasional scattered bilateral benign calcificati ons are again noted. There is no evidence of suspicious mass, calcification, or architectural distort ion to suggest malignancy in either breast. There has been no suspicious interval change. IMPRESSION: 1. No mammographic evidence of malignancy. 2. Recommend routine screening mammography in one year. BI-RADS Category 2: Benign finding(s). Reviewed, dictated and finalized at location B.
== END 2023-09-22 14:32 | disposition home or self-care (01) ==
PROVIDERS: PCP Obstetrics & Gynecology; Visit Provider Obstetrics & Gynecology
DX: Z12.31 Encounter for screening mammogram for malignant neoplasm of breast (principal)
CPT/HCPCS: 77063; 77067

== ENCOUNTER 2025-01-03 14:38 | Outpatient (CLI) | payer BC, SELFPAY ==
--- NOTE | ~2025-01-03 | MM_ITS ---
EXAMINATION: MM screening aaron BI w lizeth HISTORY: Screening mammogram TECHNIQUE: Craniocaudal and mediolateral oblique 3-D tomosynthesis images were obtained and synthetic 2-D images were generated. CAD analysis was submitted and interpreted. COMPARISON: 09/22/2023, 09/17/2022, 07/16/2022, 01/23/2021 BREAST PARENCHYMAL COMPOSITION:Dense: The breasts are heterogeneously dense, which may obscure small masses. FINDINGS: No suspicious mass, calcification, or architectural distortion are identified in either breast to suggest malignancy. There has been no suspicious interval change. IMPRESSION: No mammographic evidence of malignancy. Recommend routine screening mammography in one year. BI-RADS Category 1: Negative Reviewed, dictated and finalized at location .
--- OUTSIDE RECORDS SUMMARY | 2025-01-03 14:45 | XMS_ITS | Clinical Summary ---
Author Organization [facility] al Address [address] [place] [address] Care Team Providers Care Sales Superintendent Name Role Phone Rosio Vela Primary Care Pr ovider Allergies Active Allergy Reactions Criticality Noted Date Comments Aspirin Shortness of breath High 09/03/2016 Ibuprofen Hives,Swollen tongue ,Shortness of breath High 09/03/2016 Medications estradioL (ESTRACE) 1 mg tablet estradiol 1 mg tablet TAKE 1 TABLET BY MOUTH DAILY Active Wegovy 2.4 mg/0.75 mL auto-injector 2 Active Synthroid 75 mcg tablet 3 Active lisinopriL (PRINIVIL,ZESTR IL) 30 mg tablet 4 Active Kesimpta Pen 20 mg/0.4 mL pen injector ADMINISTER 1 INJECTION UNDER THE SKIN MONTHLY STARTING AT WEEK 4 1.2 mL 2 4 Active buPROPion XL (WELLBUTRIN XL) 150 mg 24 hr tablet TAKE 1 TABLET DAILY 90 tablet 3 5 Active diazePAM (VALIUM) 5 mg tablet Take one tab 30 minutes prior to MRI. Repeat once if needed 3 tablet 5 Active Active Problems Problem Noted Date Diagnosed Date Immunosuppression due to drug therapy 09/16/2023 History of COVID-19 09/16/2023 Vitamin D deficiency 10/03/2022 Mixed anxiety and depressive disorder 10/03/2022 Neurogenic bladder disorder 10/03/2022 Tear of right acetabular labrum 10/23/2018 Overview (10/23/2018): Added automatically from request for surgery [id number] Femoroacetabular impingement of right hip 2018 Overview (10/23/2018): Added automatically from request for surgery [id number] Encounter for medication counseling 02/06/2018 Chronic fatigue 02/06/2018 Multiple sclerosis 12/26/2017 Overview (07/03/2018): 06/06/18 JCV antibody Positive Index 0.71 High risk medication use 12/26/2017 Numbness and tingling in both hands 12/26/2017 Lhermitte's sign positive 12/26/2017 Double voiding 12/26/2017 Constipation by delayed colonic transit 12/27/19 18 Restless leg syndrome 12/26/2017 MS (multiple sclerosis) 11/19/2016 Acquired hypothyroidism 11/19/2016 Medication monitoring encounter 10/25/2016 Abnormal MRI 09/23/2016 Numbness 09/23/2016 Resolved Problems Problem Noted Date Diagnosed Date Resolved Date Chronic fatigue 06/06/2018 06/06/2018 Encounters Date Type Department Care Team Description 11/01/2024 2:30 PM CDT Office Visit [facility] Multiple Sclerosis [address] [facility] [address] [place] [address] Alexandru Marcelo MD Multiple sclerosis (HCC) (Primary Dx); Immunosuppression due to drug therapy; High risk medication use; Medication monitoring encounter; Vitamin D deficiency from Last 3 Months Immunizations Immunization Administration Dates Next Due Influenza, Quadrivalent, Garrett l Culture-based MDCK, Preservative Free, Antibiotic Free, Intramuscular 04/14/2022 Moderna SARS-CoV-2 Monovalent Vaccination (12+ Y RS) 08/05/2020,07/08/2020 Surgical History Surgery Date Site/Laterality Comments CT DELIVERY ONLY Section - (Added by TW Conv) 2004 & 2006 SECTION 2004 & 2006 HERNIA REPAIR 01/14/2018 - 02/12/2018 CHOLECYSTECTOMY 08/14/2018 - 09/12/2018 SLEEVE GASTROPLASTY 05/16/2013 - 05/15/2014 FLUORO GUIDED ASPIRATION OR INJECTION LARGE JOINT RIGHT 04/30/2021 Right Medical History Medical History Date Comments Personal history of other di seases of the circulatory system History of hypertension - (A dded by ORLANDO Munoz) Personal history of other en docrine, nutritional and metabolic disease History of hypothyro idism - (Added by ORLANDO Munoz) Hypertension Thyroid disease Neuromuscular disorder 2016 MS Hypothyroidism Urinary tract infection Family History Medical History Relation Name Comments Hypertension Father No Known Problems Mother Relation Name Status Comments Father Mother Social History Tobacco Use Types Packs/Day Years Used Date Smoking Tobacco: Never Smokeless Tobacco: Never Tobacco Cessation:Counseling Given: Not Answered Alcohol Use Standard Drinks/Week Comments Not Currently 0 (1 standard drink = 0.6 oz pur e alcohol) Comments No Sex and Gender Information Value Date Recorded Sex Assigned at Not on file Legal Sex Female 5:30 PM ADAPTED PHYSICAL EDUCATION TEACHER Gender Identity Female 06/13/2019 10:25 AM ADAPTED PHYSICAL EDUCATION TEACHER Sexual Orientation Straight 06/13/2019 10 :25 AM ADAPTED PHYSICAL EDUCATION TEACHER Occupation Industry Job Start Date Job End Date Not on file Not on file Not on file Not on file Obstetrics History Last Filed Vital Signs Vital Sign Reading Time Taken Comments Blood Pressure 120/78 11/01/2024 2:17 PM CDT Pulse 80 11/01/2024 2:17 PM CDT Temperature 36.4 C (97.5 F) 04/13/2022 10:59 AM ADAPTED PHYSICAL EDUCATION TEACHER Respiratory Rate 15 02/09/2022 7:20 PM CDT Oxygen Saturation 97% 02/09/2022 7:20 PM CDT Inhaled Oxygen Concentration - - Weight 58.5 kg (129 lb) 11/01/2024 2:17 PM CDT Height 152.4 cm (5') 11/01/2024 2:17 PM CDT Body Mass Index 25.19 11/01/2024 2:17 PM CDT Plan of Treatment Health Maintenance Due Date Last Done Comments Breast Cancer Screening-Mammogram 1970 Cervical Cancer Screening 1970 Colon Cancer Screening-Colonoscopy 1970 Depression Screening 1970 DTaP/Tdap/Td Vaccine (1 - Tdap) 1981 Regular Well Visit/Exam 18-64 1988 Pneumococcal vaccine <65 (1 of 2 - PCV) 1989 Zoster Vaccine (1 of 2) 1989 Covid-19 Vaccine (5 - 2023-2 5 season) 2024 04/14/2022, 04/03/2021, 08/05/2020, Additional history exists Influenza Vaccine (#1) 2025 04/14/2022 Hepatitis B Screening Completed 04/20/2023 Hepatitis C Screening Completed 04/20/2023 Medical Devices Implanted Type Area Dry Cure Worker Device Identifier Shelf Expiration Date Model / Serial / Lot [employer] [id number] [place] Suture Microraptor Regenesorb Knotless Rigid - [id number] Implanted:Qty: 2 on 12/25/2018 by Ronnell Conley MD at [facility] Right: Hip [employer] 08/23/2021 [id number] / / [id number] [employer] [id number] [place] Suture Microraptor Regenesorb Knotless Rigid - [id number] Implanted:Qty: 1 on 12/25/2018 by Ronnell Conley MD at [facility] Right: Hip [employer] 08/23/2021 [id number] / / [id number] Procedures Procedure Name Priority Date/Time Associated Diagnosis Comments VITAMIN D 25 HYDROXY Routine 11/27/2024 3:06 PM CDT Multiple sclerosis (HCC) Vitamin D deficiency LYMPHOCYTE SUBSET PANEL 1 Routine 11/27/2024 3:06 PM CDT Multiple sclerosis (HCC) Immunosuppression due to drug therapy High risk medication use Medication monitoring encounter IMMUNOGLOBULINS A/E/G/M, SERUM Routine 11/27/2024 3:06 PM CDT Multiple sclerosis (HCC) Immunosuppression due to drug therapy High risk medication use Medication monitoring encounter COMPREHENSIVE METABOLIC PANEL Routine 11/27/2024 3:06 PM CDT Multiple sclerosis (HCC) High risk medication use Medication monitoring encounter CBC WITH AUTO DIFFERENTIAL Routine 11/27/2024 3:06 PM CDT Multiple sclerosis (HCC) Immunosuppression due to drug therapy High risk medication use Medication monitoring encounter HEPATITIS C ANTIBODY Routine 04/20/2023 2:50 PM ADAPTED PHYSICAL EDUCATION TEACHER Multiple sclerosis (HCC) Immunosuppression due to drug therapy High risk medication use Encounter for screening for viral disease from Last 3 Months or Most Recently Relevant to Health Maintenance Results * Immunoglobulins A/E/G/M, Serum (11/27/2024 3:06 PM CDT) Pathologist [facility] Immunoglobulin A 93 47 - 310 mg/dL [facility] Immunoglobulin E 5 <FY=685 kU/L [facility] Immunoglobulin G 902 600 - 1,640 mg/dL [facility] Immunoglobulin M 53 50 - 300 mg/dL [facility] Blood 11/27/2024 3:06 PM CDT 11/27/2024 3:06 PM CDT Narrative [facility] - 11/29/2024 5:11 PM CDT FASTING:NO FASTING: NO us Alexandru Marcelo MD LAB BLOOD ORDERABLES Final Resul t Performing Organization Address City/State/[facility] Co de Phone Number [facility] [address] [place] [address] * (ABNORMAL) Lymphocyte subset panel 1 (11/27/2024 3:06 PM CDT) [facility] % CD3 85 57 - 85 % [facility] Absolute CD3+ cells 789(L) 840 - 3,060 cells/uL [facility] CD4 % 60 30 - 61 % [facility] CD4 cells 562 490 - 1,740 cells/uL [facility] % CD8 26 12 - 42 % [facility] Absolute CD8+ cells 242 180 - 1,170 cells/uL [facility] Liberty/Suppres sor ratio 2.32 0.86 - 5.00 [facility] % CD16+CD56 14 4 - 25 % [facility] Absolute NK cells (CD16+CD56+GARRETT LS) 130 70 - 760 cells/uL [facility] CD19 pct 6 - 29 % [facility] Comment:Less than 1 Absolute CD19+ CELLS <20(L) 110 - 660 cells/uL [facility] Lymphocytes, abs 928 850 - 3,900 cells/uL [facility] Blood 11/27/2024 3:06 PM CDT 11/27/2024 3:06 PM CDT Narrative [facility] - 11/29/2024 5:11 PM CDT FASTING:NO FASTING: NO us Alexandru Marcelo MD LAB BLOOD ORDERABLES Final Resul t [facility] [address] [place] [address] * (ABNORMAL) CBC with auto differential (11/27/2024 3:06 PM CDT) Pathologist [facility] WBC 4.5 3.8 - 10.8 Thousand/u L [facility] RBC, POC 3.63(L) 3.80 - 5.10 Million/uL [facility] Hgb 11.2(L) 11.7 - 15.5 g/dL [facility] Hct 34.2(L) 35.0 - 45.0 % [facility] MCV 94.2 80.0 - 100.0 fL [facility] MCH 30.9 27.0 - 33.0 pg [facility] MCHC 32.7 32.0 - 36.0 g/dL [facility] Comment: For adults, a slight decrease in the calculated MCHC value (in the range of 30 to 32 g/dL) is most likely not clinically significant; however, it should be interpreted with caution in correlation with other red cell parameters and the patient's clinical condition. Rdw 12.6 11.0 - 15.0 % [facility] Platelets 280 140 - 400 Thousand/u L [facility] MPV 9.5 7.5 - 12.5 fL [facility] Neutrophils, abs 2,921 1,500 - 7,800 cells/uL [facility] Lymphocytes, abs 959 850 - 3,900 cells/uL [facility] Monocyte abs 311 200 - 950 cells/uL [facility] Eosinophils, abs 261 15 - 500 cells/uL [facility] Basophils, abs 50 0 - 200 cells/uL [facility] Neutrophils 64.9 % [facility] Lymphocyte pct 21.3 % [facility] Monocytes 6.9 % [facility] Eosinophils 5.8 % [facility] Basophils 1.1 % [facility] Blood 11/27/2024 3:06 PM CDT 11/27/2024 3:06 PM CDT Narrative [facility] - 11/29/2024 5:11 PM CDT FASTING:NO FASTING: NO us Alexandru Marcelo MD LAB BLOOD ORDERABLES Final Resul t Performing Organization Address City/[facility] Co de Phone Number [facility] [address] [facility] [place] [address] * Vitamin D 25 hydroxy (11/27/2024 3:06 PM CDT) Pathologist [facility] Vitamin D 25-OH 49 30 - 100 ng/mL [facility] Comment: Vitamin D Status 25-OH Vitamin D: Deficiency: <20 ng/mL Insufficiency: 20 - 29 ng/mL Optimal: > or = 30 ng/mL For 25-OH Vitamin D testing on patients on D2-supplementation and patients for whom quantitation of D2 and D3 fractions is required, the [facility] 25-OH VIT D, (D2,D3), LC/MS/MS is recommended: order code 66737 (patients >2yrs). See Note 1 Note 1 For additional information, please refer to http://education.Launchr.StyroPower/faq/BHY749 (This link is being provided for informational/ educational purposes only.) Blood 11/27/2024 3:06 PM CDT 11/27/2024 3:06 PM CDT Narrative [facility] - 11/29/2024 5:11 PM CDT FASTING:NO FASTING: NO Alexandru Marcelo MD LAB BLOOD ORDERABLES Final Resul t [facility] [address] [address] * (ABNORMAL) Comprehensive metabolic panel (11/27/2024 3:06 PM CDT) Glucose 89 65 - 139 mg/dL [facility] Comment: Non-fasting reference interval BUN 14 7 - 25 mg/dL [facility] Creatinine 0.86 0.50 - 1.03 mg/dL [facility] eGFR 80 > OR = 60 mL/min/1.7 3m2 [facility] BUN/creat ratio SEE NOTE: 6 - 22 (calc) [facility] Comment: Not Reported: BUN and Creatinine are within reference range. Sodium 139 135 - 146 mmol/L [facility] Potassium, pl 4.5 3.5 - 5.3 mmol/L [facility] Chloride 106 98 - 110 mmol/L [facility] CO2 27 20 - 32 mmol/L [facility] Calcium 8.3(L) 8.6 - 10.4 mg/dL [facility] Protein, sr 5.7(L) 6.1 - 8.1 g/dL [facility] Albumin 3.9 3.6 - 5.1 g/dL [facility] GLOBULIN 1.8(L) 1.9 - 3.7 g/dL (calc) [facility] Alb/glob ratio 2.2 1.0 - 2.5 (calc) [facility] Bilirubin, total 0.3 0.2 - 1.2 mg/dL [facility] Alk phos 65 37 - 153 U/L [facility] AST 17 10 - 35 U/L [facility] ALT (SGPT) 14 6 - 29 U/L [facility] Blood 11/27/2024 3:06 PM CDT 11/27/2024 3:06 PM CDT Narrative [facility] - 11/29/2024 5:11 PM CDT FASTING:NO FASTING: NO Alexandru Marcelo MD LAB BLOOD ORDERABLES Final Resul t Performing Organization Address City/[facility]/ZIP Co de Phone Number [facility] [address] [place] [address] * Hepatitis C antibody Blood (04/20/2023 2:50 PM ADAPTED PHYSICAL EDUCATION TEACHER) Hep C Ab NON-REACTI VE NON-REACT NAUN [facility] Comment: HCV antibody was non-reactive. There is no laboratory evidence of HCV infection. In most cases, no further action is required. However, if recent HCV exposure is suspected, a test for HCV RNA (test code 07577) is suggested. For additional information please refer to http://education.CoolSystems/faq/OJJ97b2 (This link is being provided for informational/ educational purposes only.) Blood 04/20/2023 2:50 PM ADAPTED PHYSICAL EDUCATION TEACHER 04/20/2023 2:51 PM ADAPTED PHYSICAL EDUCATION TEACHER Narrative [facility] - 04/22/2023 5:22 PM ADAPTED PHYSICAL EDUCATION TEACHER FASTING:NO FASTING: NO Alexandru Marcelo MD LAB MICROBIOLOGY - GENERAL ORDER JOANNA Final Result Performing Organization Address [facility] Co de Phone Number [facility] [address] [place] [address] from Last 3 Months or Most Recently Relevant to Health Maintenance Insurance TH[employer]AT LIABILITY - GENERIC BLUE ACC CHOICE OOS [employer] ACC[employer] BLUE ACCESS OOS BLUE ACC CHOICE OOS Care Teams Sales Superintendent Relationship Specialty Start Date End Date Rosio Vela PA [address] [place] [address] PCP - General Physician Fur Trimming Machine Operator 06/20/24
--- OUTSIDE RECORDS SUMMARY | 2025-01-03 14:45 | XMS_ITS | Clinical Summary ---
Author Organization [facility] Address [address] [place] [address] Care Team Providers Care Personal Property Assessor Name Role Phone Unavailable Primary Care Provider Unavailabl e Immunizations Immunization Administration Dates Next Due Covid-19, Mrna, Lnp-s, PF, 1 00 mcg/0.5 mL Dose (Moderna) 04/03/2021 Social History Tobacco Use Types Packs/Day Years Used Date Smoking Tobacco: Never Assessed Comments Unknown Sex and Gender Information Value Date Recorded Sex Assigned at Not on file Legal Sex Female 9:06 AM TURF GROWER Gender Identity Not on file Sexual Orientation Not on file Plan of Treatment Health Maintenance Due Date Last Done Comments Hepatitis C Virus (HCV) Screening 1970 TdaP Immunization 1970 Hepatitis B Immunization (1 of 3 - 19+ 3-dose series) 1989 Pap Smear 1991 Cervical Cancer Screening (CCS) 2000 HPV/Cotest 2000 Cologuard 2015 Colonoscopy 2015 Colorectal Cancer Screening 2015 Immunochemical Fecal Occult Blood 2015 Pneumococcal Immunization (5 0+ years) (1 of 1 - PCV) 2020 Zoster Immunization (1 of 2) 2020 SARS-COV-2 Immunization (4 - 2023- season) 2024 04/03/2021, 08/05/2020, 07/08/2020 Influenza Immunization (#1) 2025 06/01/2013 Respiratory Syncytial Virus (RSV) Immunization (Adult) (1 - 1-dose 75+ series) 2045 Human Papillomavirus (HPV) Immunization Aged Out No longer eligible b ased on patient's age to complete this topic Meningococcal Immunization (ACWY) Aged Out No longer eligible b ased on patient's age to complete this topic Rotavirus Immunization Aged Out No lo nger eligible based on patient's age to complete this topic
--- OUTSIDE RECORDS SUMMARY | 2025-01-03 14:45 | XMS_ITS | Clinical Summary ---
Author Organization [facility] Address [address] [place] [address] Care Team Providers Care Management Lecturer Name Role Phone Unavailable Primary Care Provider Unavailabl e Source Comments [facility],non-owned Affiliates and Associated Physician Practices is amultiple site organization consisting of ambulatory clinics and hospital sitesin [place], [place], [place] and [place]. This disclosure is being madepursuant to the Care Everywhere program and may not contain all information available regarding this patient. Last updated 18.[facility] Allergies Active Allergy Reactions Criticality Noted Date Comments Aspirin-Caffeine Urticaria High 04/13/2010 THROAT CLOSED Medications * Be aware that medications may not be up to date on this document. Alwaysverify current medications with the patient. levothyroxine (SYNTHROID) 100 MCG tablet Take 0.088 mcg by mouth daily before breakfast. Active levonorgestrel (MIRENA) 20 MCG/24HR IUD 1 Device by Intrauterine route once. Active Cholecalciferol (VITAMIN D-3) 5000 UNITS TABS Take by mouth. Active hydroCHLOROthia zide (HYDRODIURIL) 25 MG tablet 1 Tab once daily 7 Active Active Problems Problem Noted Date Diagnosed Date MS (multiple sclerosis) 11/19/2016 Acquired hypothyroidism 11/19/2016 Immunizations Immunization Administration Dates Next Due INFLUENZA VACCINE 06/01/2013 Family History Medical History Relation Name Comments Cancer Paternal Grandfather Relation Name Status Comments Paternal Grandfather Social History Tobacco Use Types Packs/Day Years Used Date Smoking Tobacco: Never Smokeless Tobacco: Never Alcohol Use Standard Drinks/Week Comments No 0 (1 standard drink = 0.6 oz pur e alcohol) Comments No Sex and Gender Information Value Date Recorded Sex Assigned at Not on file Legal Sex Female 11:32 AM LABORATORY SAMPLER Gender Identity Not on file Sexual Orientation Not on file Last Filed Vital Signs Vital Sign Reading Time Taken Comments Blood Pressure 119/83 11/19/2016 9:23 AM CDT Pulse 76 11/19/2016 9:23 AM CDT Temperature 36.6 C (97.9 F) 06/07/2013 11:42 AM LABORATORY SAMPLER Respiratory Rate 16 06/01/2013 11:06 AM LABORATORY SAMPLER Oxygen Saturation 97% 11/19/2016 9:23 AM CDT Inhaled Oxygen Concentration - - Weight 91.2 kg (201 lb) 11/19/2016 9:23 AM CDT Height 152.4 cm (5') 11/19/2016 9:23 AM CDT Body Mass Index 39.26 11/19/2016 9:23 AM CDT Plan of Treatment Health Maintenance Due Date Last Done Comments COLOGUARD (AGES 45-75) - COL ON CA SCREENING 1970 COLON MONITORING 1970 COLONOSCOPY - COLON CA SCREENING 1970 CT COLONOGRAPHY - COLON CA SCREENING 1970 Colorectal Cancer Screening 1970 FIT - COLON CA SCREENING 1970 FLEX SIG - COLON CA SCREENING 1970 LIPID TESTING 1970 MAMMOGRAM 1970 HIV SCREENING 1985 HEPATITIS C SCREENING 04/30/1988 DTAP/TDAP/TD VACCINES (1 - Tdap) 1989 HEPATITIS B VACCINE (1 of 3 - 19+ 3-dose series) 1989 PNEUMOCOCCAL VACCINE 50+ (1 of 1 - PCV) 2020 ZOSTER VACCINE (1 of 2) 2020 COVID-19 VACCINE (1 - 2023-2 5 season) 2024 DEPRESSION SCREENING 05/16/2024 INFLUENZA VACCINE (#1) 2025 06/01/2013 HIB VACCINE Aged Out No longer eligi ble based on patient's age to complete this topic HPV VACCINE Aged Out No longer eligi ble based on patient's age to complete this topic MENINGOCOCCAL (Group B) VACC INE SHARED DECISION-MAKING Aged Out No longer eligibl e based on patient's age to complete this topic MENINGOCOCCAL GROUPS A/C/Y/W VACCINE Aged Out No longer eligible b ased on patient's age to complete this topic Insurance [facility]THE[facility] [place] [address] [place] [address] ANTHEM ANTH Advance Directives * FULL RESUSCITATION (Latest Code Status on File) Date Activated Date Inactivated Comments 05/30/2013 8:30 PM 06/01/2013 1:51 PM * FULL RESUSCITATION Date Activated Date Inactivated Comments 01/24/2013 8:51 PM 01/27/2013 11:57 AM
== END 2025-01-03 14:39 | disposition home or self-care (01) ==
LOC: ANHFOHIMG 14:40
PROVIDERS: PCP Obstetrics & Gynecology; Visit Provider Obstetrics & Gynecology
DX: Z12.31 Encounter for screening mammogram for malignant neoplasm of breast (principal)
CPT/HCPCS: 77063; 77067

== ENCOUNTER 2025-04-26 01:36 | Day surgery (SDC) | payer BC, SELFPAY ==
[2025-04-23 09:10] VITALS: BMI 24.4
--- NOTE | 2025-04-23 09:15 | PC.NURSE ---
[facility] has started construction of its new state of the art ER which will open Spring 2026. With this, we anticipate parking may be a challenge for some our surgical patients and families. Parking spaces are limited but are available for all Surgical, obstetrics, and ER patients sharing this lot. If you arrive and find you are having a hard time finding a parking space, please note that we understand the challenges, please drive around the hospital and park near Hospital Entrance 1. When you enter this entrance, you can ask a volunteer to direct or take you back to the surgical waiting area to check in. We appreciate everyone?s understanding of these expected challenges while we build for your future. Report to the Outpatient Waiting Room, entrance under the green pavilion located off [address], at time 0600 on date 04/26/25. Planned Procedure Time: 0730.? Time changes happen often and if your time is changed the preop area will call you the afternoon before. - You and your visitor will be asked to self-screen and do not enter if you have any COVID symptoms. Please call surgeon if you need to reschedule. - A mask is optional within the hospital at this time. Patients may have clear liquids (water, carbonated beverages, clear teas, apple juice) until 3 hours prior to surgery with a maximum of 20 ounces. - No food from midnight until time of surgery and no smoking, or chewing tobacco (or any form of nicotine). No chewing gum, candy or mints. - Infants may have breast milk until 4 hours before surgery, formula 6 hours prior to surgery. - Children will be allowed to drink immediately following surgery.? If applicable, please bring a bottle or sippy cup to assist with drinking. Juice, water, soda, and popsicles are readily available.? For infants on formula, please bring formula the day of surgery.? Pacifiers are allowed. Take only the following medications with a SIP of water on the morning of surgery: ____bupropion, levothyroxine_ DO NOT STOP ANY OF YOUR OTHER PRESCRIPTION MEDICATIONS PRIOR TO SURGERY EXCEPT THE FOLLOWING Hold all vitamins and supplements for 3 days per anesthesiologist. Medications to discontinue per physician ____Wegovy 10 days prior, lisinopril and estradiol day of surgery, vitamin D3 3 days prior Date to take last dose Please no make-up, nail ukrainian, hairspray, perfume, deodorant, or body powder the day of surgery.? No jewelry (including any body piercings) or valuables the day of surgery, leave them at home.? Please take a shower or bath the night before, or the morning of, surgery with an antibacterial soap.? Wear comfortable, loose fitting clothing.? Children are encouraged to wear pajamas. - Jewelry must be removed prior to entering the operating room.? Rings and piercings that are not removed may be cut off. - The hospital will not accept responsibility for valuables.? - Please leave all valuables, including medications, at home the day of surgery. If you are going home after surgery, a licensed hazmat cdl a driver must drive you home.? - NO public transportation without another adult if you receive anesthesia. - We recommend that an adult stay with you for 24 hours following discharge. - We also recommend that you do not drive, make important decision, drink alcoholic beverages, or take any drugs that were not prescribed by your health care provider for at least 24 hours after your discharge time. For Pediatric surgeries, we recommend two adults accompany the child home. Follow any additional instructions given to you from your surgeon. Telephone instructions given to __patient__and asked if any additional questions and then verbalized understanding. Patient advised to call surgeon office or pre surgery nurse liaison [phone] if any additional questions.
--- NOTE | 2025-04-24 07:09 | PM.IMHP2 ---
H&P: HPI History of Present Illness Date/Time: 04/24/25 07:09 Chief Complaint: Postmenopausal bleeding Narrative: 54-year-old 3 para 3 admitted for hysteroscopy dilatation curettage secondary to postmenopausal bleeding her labs show she is postmenopausal she has 5mm thickness on her endometrial ultrasound there was also little bit of irregularity for safety sake she will undergo hysteroscopy dilatation curettage risks and benefits reviewed including but not exclusive of , aspiration pneumonia, bleeding, transfusion, perforation injury to bowel, bladder, ureters, or other internal organs with need for open laparotomy. She received the [employer] handout entitled hysteroscopy. She had all questions answered. She asked to proceed Review of Systems Constitutional: Constitutional: Denies headache(s) and Denies weakness Eyes: Eyes: Denies blurry vision ENT: Reports Normal hearing present, Denies headache(s) and Denies neck pain Cardiovascular: Cardiovascular: Denies chest pain and Denies dyspnea Respiratory: Respiratory: Denies dyspnea Gastrointestinal: Gastrointestinal: Reports no additional gastrointestinal complaints Genitourinary: Genitourinary: Denies dysuria Musculoskeletal: Musculoskeletal: Denies neck pain Integumentary/Breasts: Skin/Breast: Denies dry skin Neurologic: Reports Normal hearing present, Denies headache(s) and Denies weakness Psychiatric: Psychiatric: Denies anxiety Endocrine: Endocrine: Denies change in body appearance Hematologic/Lymphatic: Hematologic/Lymphatic: Denies easy bleeding Allergic/Immunologic: Allergic/Immunologic: Denies urticaria PMFSH Past Medical History Medical History Colon cancer screening Hypothyroid Anxiety Multiple sclerosis Surgical History Surgical History History of 2 sections 2004, 2006 History of gastric restrictive surgery 2010 History of hernia repair 2018 History of cholecystectomy 2018 History of hip surgery 2019 Family History Family History Other Hypertension Social History Social History Smoking status: Never smoker Alcohol intake: never Substance use: never Substance use type: does not use Living arrangements: with family Gender identity (if verbalized by the patient): Female Spiritual care concerns: No Meds Home Medications and Allergies Home Medications ?Medication ?Instructions ?Recorded ?Confirmed ?Type bupropion HCl 150 mg tablet,12 hr 150 mg PO DAILY 09/10/19 04/23/25 History sustained-release estradiol 1 mg tablet 1 mg PO DAILY 07/14/22 04/23/25 History levothyroxine 75 mcg tablet 75 mcg PO DAILY 07/14/22 04/23/25 History lisinopril 20 mg tablet 20 mg PO DAILY 07/14/22 04/23/25 History semaglutide (weight loss) 1.7 1.75 mg subcut WEEKLY 07/14/22 04/23/25 History mg/0.75 mL subcutaneous pen injector (Wegovy) cholecalciferol (vitamin D3) 100 100 mcg PO DAILY 04/23/25 04/23/25 History mcg (4,000 unit) capsule ofatumumab 20 mg/0.4 mL 20 mg subcut WEEKLY 04/23/25 04/23/25 History subcutaneous pen injector (Kesimpta Pen) Allergies Allergy/AdvReac Type Severity Reaction Status Date / Time aspirin Allergy Severe Swelling Verified 04/23/25 09:09 of Lip/Tongue/Throat ketorolac Allergy Severe Swelling Verified 04/23/25 09:09 of Lip/Tongue/Throat ibuprofen Allergy Swelling Verified 04/23/25 09:09 of Lip/Tongue/Throat Exam Const: General: comfortable and no acute distress HENMT: Face/Nose/Sinus: Normal nares present Eyes: General: appearance normal, both eyes and all related structures Neck: Neck: no JVD Resp: Auscultation: clear to auscultation bilaterally Cardio: Rate: regular rate Rhythm: regular rhythm GI: Inspection: non-distended GI Palp: Yes Soft to palpation Skin: General skin exam: normal color Neuro: General: gait normal Speech: normal speech Extrem: General: normal to inspection Psych: Mental Status: mental status grossly normal Assessment and Plan Assessment and plan (1) Postmenopausal bleeding: Code(s): N95.0 - Postmenopausal bleeding Status: Acute Plan Proceed with hysteroscopy/dilatation and curettage
--- OUTSIDE RECORDS SUMMARY | 2025-04-26 01:38 | XMS_ITS | Clinical Summary ---
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 Repeat once if needed 3 tablet 5 Active Kesimpta Pen 20 mg/0.4 mL pen injectorIndicat ions:Multiple sclerosis ADMINISTER 1 INJECTION UNDER THE SKIN MONTHLY STARTING AT WEEK 4 1.2 mL 1 5 Active Active Problems Problem Noted Date Diagnosed Date Immunosuppression due to drug therapy 09/16/2023 History of COVID-19 09/16/2023 Vitamin D deficiency 10/03/2022 Mixed anxiety and depressive disorder 10/03/2022 Neurogenic bladder disorder 10/03/2022 Tear of right acetabular labrum 10/23/2018 Overview (10/23/2018): Added automatically from request for surgery [id number] Femoroacetabular impingement of right hip 2018 Overview (10/23/2018): Added automatically from request for surgery [id number] Encounter for medication counseling 02/06/2018 Chronic fatigue [...] Encounters Date Type Department Care Team Description 03/12/2025 Telephone [facility] [address] [place] [address] Iman Wilkins RPh Prior Auth 02/09/2025 11:58 AM CDT - 02/09/2025 11:59 PM CDT Hospital Encounter [facility] [address] [place] [id number] Multiple sclerosis (HCC) Discharge Disposition: Discharge to home or self care from Last 3 Months Immunizations Immunization Administration Dates Next Due Influenza, Quadrivalent, Va l Culture-based MDCK, Preservative Free, Antibiotic Free, Intramuscular 04/14/2022 Moderna SARS-CoV-2 Monovalent Vaccination (12+ Y RS) 08/05/2020,07/08/2020 Surgical History Surgery Date Site/Laterality Comments ND DELIVERY ONLY Section - (Added by TW [...] on file Legal Sex Female 5:30 PM HAIR BLENDER Gender Identity Female 06/13/2019 10:25 AM HAIR BLENDER Sexual Orientation Straight 06/13/2019 10 :25 AM HAIR BLENDER Occupation Industry Job Start Date Job End Date Not on file Not on file Not on file Not on file Last Filed Vital Signs Vital Sign Reading Time Taken Comments Blood Pressure 120/78 11/01/2024 2:17 PM CDT Pulse 80 11/01/2024 2:17 PM CDT Temperature 36.4 C (97.5 F) 04/13/2022 10:59 AM HAIR BLENDER Respiratory Rate 15 02/09/2022 7:20 PM CDT Oxygen Saturation 97% 02/09/2022 7:20 PM CDT Inhaled Oxygen Concentration - - Weight 56.7 kg (125 lb) 02/09/2025 12:01 PM CDT Height 152.4 cm (5') 02/09/2025 12:01 PM CDT Body Mass Index 24.41 02/09/2025 12:01 PM CDT Plan of Treatment Health Maintenance Due Date Last Done Comments Breast Cancer Screening-Mammogram 1970 Cervical Cancer Screening 1970 Colon Cancer Screening-Colonoscopy 1970 Depression Screening 1970 DTaP/Tdap/Td Vaccine (1 - Tdap) 1981 Regular Well Visit/Exam 18-64 1988 Pneumococcal vaccine <65 (1 of 2 - PCV) 1989 Zoster Vaccine (1 of 2) 1989 Covid-19 Vaccine (5 - 2024-2 6 season) 2025 04/14/2022, 04/03/2021, 08/05/2020, Additional history exists Influenza Vaccine (#1) 2025 04/14/2022 Hepatitis B Screening Completed 04/20/2023 Hepatitis C Screening Completed 04/20/2023 Medical Devices Implanted Type Area Disability Counselor Device Identifier Shelf Expiration Date Model / Serial / Lot [employer] [id number] Pillager Suture Microraptor Regenesorb Knotless Rigid - [id number] Implanted:Qty: 2 on 12/25/2018 by Ronnell Conley MD at [facility] Right: Hip [employer] 08/23/2021 [id number] / / [id number] [employer] [id number] Pillager Suture Microraptor Regenesorb Knotless Rigid - [id number] Implanted:Qty: 1 on 12/25/2018 by Ronnell Conley MD at [facility] Right: Hip [employer] 08/23/2021 [id number] / / [id number] Procedures Procedure Name Priority Date/Time Associated Diagnosis Comments MRI MS BRAIN 3T PROTOCOL W WO CONTRAST Schedule Routine, Read Routine (OP Routine) 02/09/2025 1:51 PM CDT Multiple sclerosis (HCC) MRI CERVICAL SPINE W WO CONTRAST Schedule Routine, Read Routine (OP Routine) 02/09/2025 1:51 PM CDT Multiple sclerosis (HCC) MRI THORACIC SPINE W WO CONTRAST Schedule Routine, Read Routine (OP Routine) 02/09/2025 1:51 PM CDT Multiple sclerosis (HCC) HEPATITIS C ANTIBODY Routine 04/20/2023 2:50 PM HAIR BLENDER Multiple sclerosis (HCC) Immunosuppression due to drug therapy High risk medication use Encounter for screening for viral disease from Last 3 Months or Most Recently Relevant to Health Maintenance Results * MRI Thoracic Spine W WO Contrast (02/09/2025 1:51 PM CDT) Anatomical Region Laterality Modality Spine N/A Magnetic Resonan ce 02/09/2025 4:09 PM CDT Impressions 02/09/2025 4:46 PM CDT Multiple unchanged intracranial and spinal white matter lesions. New T2 Lesions: None Enhancing Lesions: None Dictated by: Edel Logan M.D. The radiology attending physician has personally reviewed this study, and had reviewed and/or edited this written report and agrees with it. Electronically signed by: Chayito Herman M.D., Ph.D. Narrative 02/09/2025 4:46 PM CDT EXAMINATION: 1. Magnetic resonance imaging (MRI) of the brain and brainstem without and with contrast 2. Magnetic resonance imaging (MRI) of the cervical spine without and with contrast 3. Magnetic resonance imaging (MRI) of the thoracic spine without and with contrast HISTORY: Multiple sclerosis follow-up imaging. TECHNIQUE: Multiplanar multi-weighted MRI of the brain, brainstem was performed without and with intravenous contrast using the multiple sclerosis protocol, which includes high resolution 3D T1-weighted, FLAIR, and T2*-weighted gradient echo images. Multiplanar multi-weighted MRI of the cervical spine was performed without and with intravenous contrast using the standard protocol. Multiplanar multi-weighted MRI of the thoracic was performed without and with intravenous contrast using the standard protocol. Scanner: HALGI Field Strength: 3T Contrast information: 11 mL Gadoterate Meglumine IV The post-contrast scan was performed approximately 5 minutes after IV contrast administration. COMPARISON: Brain and C-spine 10/21/2023 FINDINGS: BRAIN: There are multiple foci of hyperintensity on FLAIR and T2-weighted images within the white matter compatible with demyelinating plaques of multiple sclerosis. This includes periventricular, callosal, cerebellar, cortical or juxtacortical, and brainstem lesions. New Brain T2 Lesions: None T1 Hypointense Black Holes: Multiple unchanged. Enhancing Brain Lesions: None T2/FLAIR Leon of Disease: Moderate, between 10 and 30 typical lesions Parenchymal Volume Loss: None Mildly increased T2/FLAIR signal in the intraorbital left optic nerve is similar when compared to the prior scan. The scalp and calvarium are normal. The superior sagittal sinus demonstrates normal venous flow. The corpus callosum is normal in shape and signal intensity. The posterior fossa is unremarkable. The pituitary and sella are normal. The brainstem and craniocervical junction are unremarkable. Diffusion weighted images reveal no hyperintensities to suggest acute cerebral infarction. The susceptibility weighted sequences reveal no evidence of acute or chronic hemorrhage. The ventricles are normal in size and position without evidence of hydrocephalus. The paranasal sinuses are normal. The visualized portions of the mastoids are unremarkable. The orbits appear normal. Normal flow voids are demonstrated in the carotid arteries and basilar artery. CERVICAL SPINE: Redemonstration of T2 hyperintense lesion in the dorsal spinal cord at C1-C2 level, C2-C3 level, Central cord at C5 level, left lateral cord at C7 level. New Spine T2 Lesions: None Enhancing Spine Lesions: None The alignment of the cervical spine is normal. Vertebral bodies demonstrate normal signal intensity on all sequences. No acute fracture is identified. The craniocervical junction is normal. The visualized portions of the skull base and the posterior fossa are normal. The spinal cord demonstrates normal signal intensity on all sequences. Degenerative changes in the cervical spine with posterior disc osteophyte complex at C5-C6 level. Multilevel facet and uncovertebral joint hypertrophy causing pain levels of neural foramen narrowing. No soft tissue abnormality is identified. Normal signal voids are present in the vertebral arteries. THORACIC SPINE: New Spine T2 Lesions: None Enhancing Spine Lesions: None The alignment of the thoracic spine is normal. Vertebral bodies demonstrate normal signal intensity on all sequences. There are no compression fractures. The spinal cord demonstrates normal signal intensity on all sequences. Intervertebral disks have normal height and signal intensity. There are cysts in the liver. The aorta is normal. Procedure Note Chayito Herman MD PhD - 02/09/2025 EXAMINATION: 1. Magnetic resonance imaging (MRI) of the brain and brainstem without and with contrast 2. Magnetic resonance imaging (MRI) of the cervical spine without and with contrast 3. Magnetic resonance imaging (MRI) of the thoracic spine without and with contrast HISTORY: Multiple sclerosis follow-up imaging. TECHNIQUE: Multiplanar multi-weighted MRI of the brain, brainstem was performed without and with intravenous contrast using the multiple sclerosis protocol, which includes high resolution 3D T1-weighted, FLAIR, and T2*-weighted gradient echo images. Multiplanar multi-weighted MRI of the cervical spine was performed without and with intravenous contrast using the standard protocol. Multiplanar multi-weighted MRI of the thoracic was performed without and with intravenous contrast using the standard protocol. Scanner: [place] Field Strength: 3T Contrast information: 11 mL Gadoterate Meglumine IV The post-contrast scan was performed approximately 5 minutes after IV contrast administration. COMPARISON: Brain and C-spine 10/21/2023 FINDINGS: BRAIN: There are multiple foci of hyperintensity on FLAIR and T2-weighted images within the white matter compatible with demyelinating plaques of multiple sclerosis. This includes periventricular, callosal, cerebellar, cortical or juxtacortical, and brainstem lesions. New Brain T2 Lesions: None T1 Hypointense Black Holes: Multiple unchanged. Enhancing Brain Lesions: None T2/FLAIR Leon of Disease: Moderate, between 10 and 30 typical lesions Parenchymal Volume Loss: None Mildly increased T2/FLAIR signal in the intraorbital left optic nerve is similar when compared to the prior scan. The scalp and calvarium are normal. The superior sagittal sinus demonstrates normal venous flow. The corpus callosum is normal in shape and signal intensity. The posterior fossa is unremarkable. The pituitary and sella are normal. The brainstem and craniocervical junction are unremarkable. Diffusion weighted images reveal no hyperintensities to suggest acute cerebral infarction. The susceptibility weighted sequences reveal no evidence of acute or chronic hemorrhage. The ventricles are normal in size and position without evidence of hydrocephalus. The paranasal sinuses are normal. The visualized portions of the mastoids are unremarkable. The orbits appear normal. Normal flow voids are demonstrated in the carotid arteries and basilar artery. CERVICAL SPINE: Redemonstration of T2 hyperintense lesion in the dorsal spinal cord at C1-C2 level, C2-C3 level, Central cord at C5 level, left lateral cord at C7 level. New Spine T2 Lesions: None Enhancing Spine Lesions: None The alignment of the cervical spine is normal. Vertebral bodies demonstrate normal signal intensity on all sequences. No acute fracture is identified. The craniocervical junction is normal. The visualized portions of the skull base and the posterior fossa are normal. The spinal cord demonstrates normal signal intensity on all sequences. Degenerative changes in the cervical spine with posterior disc osteophyte complex at C5-C6 level. Multilevel facet and uncovertebral joint hypertrophy causing pain levels of neural foramen narrowing. No soft tissue abnormality is identified. Normal signal voids are present in the vertebral arteries. THORACIC SPINE: New Spine T2 Lesions: None Enhancing Spine Lesions: None The alignment of the thoracic spine is normal. Vertebral bodies demonstrate normal signal intensity on all sequences. There are no compression fractures. The spinal cord demonstrates normal signal intensity on all sequences. Intervertebral disks have normal height and signal intensity. There are cysts in the liver. The aorta is normal. IMPRESSION: Multiple unchanged intracranial and spinal white matter lesions. New T2 Lesions: None Enhancing Lesions: None Dictated by: Edel Logan M.D. The radiology attending physician has personally reviewed this study, and had reviewed and/or edited this written report and agrees with it. Electronically signed by: Chayito Herman M.D., Ph.D. Alexandru Marcelo MD IM MRI PROCEDURES Final Result * MRI Cervical Spine W WO Contrast (02/09/2025 1:51 PM CDT) Anatomical Region Laterality Modality Spine N/A Magnetic Resonan ce 02/09/2025 4:09 PM CDT Impressions 02/09/2025 4:46 PM CDT Multiple unchanged intracranial and spinal white matter lesions. New T2 Lesions: None Enhancing Lesions: None Dictated by: Edel Logan M.D. The radiology attending physician has personally reviewed this study, and had reviewed and/or edited this written report and agrees with it. Electronically signed by: Chayito Herman M.D., Ph.D. Narrative 02/09/2025 4:46 PM CDT EXAMINATION: 1. Magnetic resonance imaging (MRI) of the brain and brainstem without and with contrast 2. Magnetic resonance imaging (MRI) of the cervical spine without and with contrast 3. Magnetic resonance imaging (MRI) of the thoracic spine without and with contrast HISTORY: Multiple sclerosis follow-up imaging. TECHNIQUE: Multiplanar multi-weighted MRI of the brain, brainstem was performed without and with intravenous contrast using the multiple sclerosis protocol, which includes high resolution 3D T1-weighted, FLAIR, and T2*-weighted gradient echo images. Multiplanar multi-weighted MRI of the cervical spine was performed without and with intravenous contrast using the standard protocol. Multiplanar multi-weighted MRI of the thoracic was performed without and with intravenous contrast using the standard protocol. Scanner: [place] Field Strength: 3T Contrast information: 11 mL Gadoterate Meglumine IV The post-contrast scan was performed approximately 5 minutes after IV contrast administration. COMPARISON: Brain and C-spine 10/21/2023 FINDINGS: BRAIN: There are multiple foci of hyperintensity on FLAIR and T2-weighted images within the white matter compatible with demyelinating plaques of multiple sclerosis. This includes periventricular, callosal, cerebellar, cortical or juxtacortical, and brainstem lesions. New Brain T2 Lesions: None T1 Hypointense Black Holes: Multiple unchanged. Enhancing Brain Lesions: None T2/FLAIR Leon of Disease: Moderate, between 10 and 30 typical lesions Parenchymal Volume Loss: None Mildly increased T2/FLAIR signal in the intraorbital left optic nerve is similar when compared to the prior scan. The scalp and calvarium are normal. The superior sagittal sinus demonstrates normal venous flow. The corpus callosum is normal in shape and signal intensity. The posterior fossa is unremarkable. The pituitary and sella are normal. The brainstem and craniocervical junction are unremarkable. Diffusion weighted images reveal no hyperintensities to suggest acute cerebral infarction. The susceptibility weighted sequences reveal no evidence of acute or chronic hemorrhage. The ventricles are normal in size and position without evidence of hydrocephalus. The paranasal sinuses are normal. The visualized portions of the mastoids are unremarkable. The orbits appear normal. Normal flow voids are demonstrated in the carotid arteries and basilar artery. CERVICAL SPINE: Redemonstration of T2 hyperintense lesion in the dorsal spinal cord at C1-C2 level, C2-C3 level, Central cord at C5 level, left lateral cord at C7 level. New Spine T2 Lesions: None Enhancing Spine Lesions: None The alignment of the cervical spine is normal. Vertebral bodies demonstrate normal signal intensity on all sequences. No acute fracture is identified. The craniocervical junction is normal. The visualized portions of the skull base and the posterior fossa are normal. The spinal cord demonstrates normal signal intensity on all sequences. Degenerative changes in the cervical spine with posterior disc osteophyte complex at C5-C6 level. Multilevel facet and uncovertebral joint hypertrophy causing pain levels of neural foramen narrowing. No soft tissue abnormality is identified. Normal signal voids are present in the vertebral arteries. THORACIC SPINE: New Spine T2 Lesions: None Enhancing Spine Lesions: None The alignment of the thoracic spine is normal. Vertebral bodies demonstrate normal signal intensity on all sequences. There are no compression fractures. The spinal cord demonstrates normal signal intensity on all sequences. Intervertebral disks have normal height and signal intensity. There are cysts in the liver. The aorta is normal. Procedure Note Benzinger, Chayito Antoine, MD PhD - 02/09/2025 EXAMINATION: 1. Magnetic resonance imaging (MRI) of the brain and brainstem without and with contrast 2. Magnetic resonance imaging (MRI) of the cervical spine without and with contrast 3. Magnetic resonance imaging (MRI) of the thoracic spine without and with contrast HISTORY: Multiple sclerosis follow-up imaging. TECHNIQUE: Multiplanar multi-weighted MRI of the brain, brainstem was performed without and with intravenous contrast using the multiple sclerosis protocol, which includes high resolution 3D T1-weighted, FLAIR, and T2*-weighted gradient echo images. Multiplanar multi-weighted MRI of the cervical spine was performed without and with intravenous contrast using the standard protocol. Multiplanar multi-weighted MRI of the thoracic was performed without and with intravenous contrast using the standard protocol. Scanner: HALGI Field Strength: 3T Contrast information: 11 mL Gadoterate Meglumine IV The post-contrast scan was performed approximately 5 minutes after IV contrast administration. COMPARISON: Brain and C-spine 10/21/2023 FINDINGS: BRAIN: There are multiple foci of hyperintensity on FLAIR and T2-weighted images within the white matter compatible with demyelinating plaques of multiple sclerosis. This includes periventricular, callosal, cerebellar, cortical or juxtacortical, and brainstem lesions. New Brain T2 Lesions: None T1 Hypointense Black Holes: Multiple unchanged. Enhancing Brain Lesions: None T2/FLAIR Leon of Disease: Moderate, between 10 and 30 typical lesions Parenchymal Volume Loss: None Mildly increased T2/FLAIR signal in the intraorbital left optic nerve is similar when compared to the prior scan. The scalp and calvarium are normal. The superior sagittal sinus demonstrates normal venous flow. The corpus callosum is normal in shape and signal intensity. The posterior fossa is unremarkable. The pituitary and sella are normal. The brainstem and craniocervical junction are unremarkable. Diffusion weighted images reveal no hyperintensities to suggest acute cerebral infarction. The susceptibility weighted sequences reveal no evidence of acute or chronic hemorrhage. The ventricles are normal in size and position without evidence of hydrocephalus. The paranasal sinuses are normal. The visualized portions of the mastoids are unremarkable. The orbits appear normal. Normal flow voids are demonstrated in the carotid arteries and basilar artery. CERVICAL SPINE: Redemonstration of T2 hyperintense lesion in the dorsal spinal cord at C1-C2 level, C2-C3 level, Central cord at C5 level, left lateral cord at C7 level. New Spine T2 Lesions: None Enhancing Spine Lesions: None The alignment of the cervical spine is normal. Vertebral bodies demonstrate normal signal intensity on all sequences. No acute fracture is identified. The craniocervical junction is normal. The visualized portions of the skull base and the posterior fossa are normal. The spinal cord demonstrates normal signal intensity on all sequences. Degenerative changes in the cervical spine with posterior disc osteophyte complex at C5-C6 level. Multilevel facet and uncovertebral joint hypertrophy causing pain levels of neural foramen narrowing. No soft tissue abnormality is identified. Normal signal voids are present in the vertebral arteries. THORACIC SPINE: New Spine T2 Lesions: None Enhancing Spine Lesions: None The alignment of the thoracic spine is normal. Vertebral bodies demonstrate normal signal intensity on all sequences. There are no compression fractures. The spinal cord demonstrates normal signal intensity on all sequences. Intervertebral disks have normal height and signal intensity. There are cysts in the liver. The aorta is normal. IMPRESSION: Multiple unchanged intracranial and spinal white matter lesions. New T2 Lesions: None Enhancing Lesions: None Dictated by: Edel Logan M.D. The radiology attending physician has personally reviewed this study, and had reviewed and/or edited this written report and agrees with it. Electronically signed by: Chayito Herman M.D., Ph.D. Alexandru Marcelo MD [facility] MRI PROCEDURES Final Result * MRI MS Brain 3T Protocol W WO Contrast (02/09/2025 1:51 PM CDT) Anatomical Region Laterality Modality Head and Neck N/A Magnetic Resonan ce 02/09/2025 4:09 PM CDT Impressions 02/09/2025 4:46 PM CDT Multiple unchanged intracranial and spinal white matter lesions. New T2 Lesions: None Enhancing Lesions: None Dictated by: Edel Logan M.D. The radiology attending physician has personally reviewed this study, and had reviewed and/or edited this written report and agrees with it. Electronically signed by: Chayito Herman M.D., Ph.D. Narrative 02/09/2025 4:46 PM CDT EXAMINATION: 1. Magnetic resonance imaging (MRI) of the brain and brainstem without and with contrast 2. Magnetic resonance imaging (MRI) of the cervical spine without and with contrast 3. Magnetic resonance imaging (MRI) of the thoracic spine without and with contrast HISTORY: Multiple sclerosis follow-up imaging. TECHNIQUE: Multiplanar multi-weighted MRI of the brain, brainstem was performed without and with intravenous contrast using the multiple sclerosis protocol, which includes high resolution 3D T1-weighted, FLAIR, and T2*-weighted gradient echo images. Multiplanar multi-weighted MRI of the cervical spine was performed without and with intravenous contrast using the standard protocol. Multiplanar multi-weighted MRI of the thoracic was performed without and with intravenous contrast using the standard protocol. Scanner: HALGI Field Strength: 3T Contrast information: 11 mL Gadoterate Meglumine IV The post-contrast scan was performed approximately 5 minutes after IV contrast administration. COMPARISON: Brain and C-spine 10/21/2023 FINDINGS: BRAIN: There are multiple foci of hyperintensity on FLAIR and T2-weighted images within the white matter compatible with demyelinating plaques of multiple sclerosis. This includes periventricular, callosal, cerebellar, cortical or juxtacortical, and brainstem lesions. New Brain T2 Lesions: None T1 Hypointense Black Holes: Multiple unchanged. Enhancing Brain Lesions: None T2/FLAIR Leon of Disease: Moderate, between 10 and 30 typical lesions Parenchymal Volume Loss: None Mildly increased T2/FLAIR signal in the intraorbital left optic nerve is similar when compared to the prior scan. The scalp and calvarium are normal. The superior sagittal sinus demonstrates normal venous flow. The corpus callosum is normal in shape and signal intensity. The posterior fossa is unremarkable. The pituitary and sella are normal. The brainstem and craniocervical junction are unremarkable. Diffusion weighted images reveal no hyperintensities to suggest acute cerebral infarction. The susceptibility weighted sequences reveal no evidence of acute or chronic hemorrhage. The ventricles are normal in size and position without evidence of hydrocephalus. The paranasal sinuses are normal. The visualized portions of the mastoids are unremarkable. The orbits appear normal. Normal flow voids are demonstrated in the carotid arteries and basilar artery. CERVICAL SPINE: Redemonstration of T2 hyperintense lesion in the dorsal spinal cord at C1-C2 level, C2-C3 level, Central cord at C5 level, left lateral cord at C7 level. New Spine T2 Lesions: None Enhancing Spine Lesions: None The alignment of the cervical spine is normal. Vertebral bodies demonstrate normal signal intensity on all sequences. No acute fracture is identified. The craniocervical junction is normal. The visualized portions of the skull base and the posterior fossa are normal. The spinal cord demonstrates normal signal intensity on all sequences. Degenerative changes in the cervical spine with posterior disc osteophyte complex at C5-C6 level. Multilevel facet and uncovertebral joint hypertrophy causing pain levels of neural foramen narrowing. No soft tissue abnormality is identified. Normal signal voids are present in the vertebral arteries. THORACIC SPINE: New Spine T2 Lesions: None Enhancing Spine Lesions: None The alignment of the thoracic spine is normal. Vertebral bodies demonstrate normal signal intensity on all sequences. There are no compression fractures. The spinal cord demonstrates normal signal intensity on all sequences. Intervertebral disks have normal height and signal intensity. There are cysts in the liver. The aorta is normal. Procedure Note Chayito Herman MD PhD - 02/09/2025 EXAMINATION: 1. Magnetic resonance imaging (MRI) of the brain and brainstem without and with contrast 2. Magnetic resonance imaging (MRI) of the cervical spine without and with contrast 3. Magnetic resonance imaging (MRI) of the thoracic spine without and with contrast HISTORY: Multiple sclerosis follow-up imaging. TECHNIQUE: Multiplanar multi-weighted MRI of the brain, brainstem was performed without and with intravenous contrast using the multiple sclerosis protocol, which includes high resolution 3D T1-weighted, FLAIR, and T2*-weighted gradient echo images. Multiplanar multi-weighted MRI of the cervical spine was performed without and with intravenous contrast using the standard protocol. Multiplanar multi-weighted MRI of the thoracic was performed without and with intravenous contrast using the standard protocol. Scanner: Ronit Field Strength: 3T Contrast information: 11 mL Gadoterate Meglumine IV The post-contrast scan was performed approximately 5 minutes after IV contrast administration. COMPARISON: Brain and C-spine 10/21/2023 FINDINGS: BRAIN: There are multiple foci of hyperintensity on FLAIR and T2-weighted images within the white matter compatible with demyelinating plaques of multiple sclerosis. This includes periventricular, callosal, cerebellar, cortical or juxtacortical, and brainstem lesions. New Brain T2 Lesions: None T1 Hypointense Black Holes: Multiple unchanged. Enhancing Brain Lesions: None T2/FLAIR Leon of Disease: Moderate, between 10 and 30 typical lesions Parenchymal Volume Loss: None Mildly increased T2/FLAIR signal in the intraorbital left optic nerve is similar when compared to the prior scan. The scalp and calvarium are normal. The superior sagittal sinus demonstrates normal venous flow. The corpus callosum is normal in shape and signal intensity. The posterior fossa is unremarkable. The pituitary and sella are normal. The brainstem and craniocervical junction are unremarkable. Diffusion weighted images reveal no hyperintensities to suggest acute cerebral infarction. The susceptibility weighted sequences reveal no evidence of acute or chronic hemorrhage. The ventricles are normal in size and position without evidence of hydrocephalus. The paranasal sinuses are normal. The visualized portions of the mastoids are unremarkable. The orbits appear normal. Normal flow voids are demonstrated in the carotid arteries and basilar artery. CERVICAL SPINE: Redemonstration of T2 hyperintense lesion in the dorsal spinal cord at C1-C2 level, C2-C3 level, Central cord at C5 level, left lateral cord at C7 level. New Spine T2 Lesions: None Enhancing Spine Lesions: None The alignment of the cervical spine is normal. Vertebral bodies demonstrate normal signal intensity on all sequences. No acute fracture is identified. The craniocervical junction is normal. The visualized portions of the skull base and the posterior fossa are normal. The spinal cord demonstrates normal signal intensity on all sequences. Degenerative changes in the cervical spine with posterior disc osteophyte complex at C5-C6 level. Multilevel facet and uncovertebral joint hypertrophy causing pain levels of neural foramen narrowing. No soft tissue abnormality is identified. Normal signal voids are present in the vertebral arteries. THORACIC SPINE: New Spine T2 Lesions: None Enhancing Spine Lesions: None The alignment of the thoracic spine is normal. Vertebral bodies demonstrate normal signal intensity on all sequences. There are no compression fractures. The spinal cord demonstrates normal signal intensity on all sequences. Intervertebral disks have normal height and signal intensity. There are cysts in the liver. The aorta is normal. IMPRESSION: Multiple unchanged intracranial and spinal white matter lesions. New T2 Lesions: None Enhancing Lesions: None Dictated by: Edel Logan M.D. The radiology attending physician has personally reviewed this study, and had reviewed and/or edited this written report and agrees with it. Electronically signed by: Chayito Herman M.D., Ph.D. Alexandru Marcelo MD IM MRI PROCEDURES Final Result * Hepatitis C antibody Blood (04/20/2023 2:50 PM HAIR BLENDER) Hep C Ab NON-REACTI VE NON-REACT NAUN [facility] Comment: HCV antibody was non-reactive. There is no laboratory evidence of HCV infection. In most cases, no further action is required. However, if recent HCV exposure is suspected, a test for HCV RNA (test code 99485) is suggested. For additional information please refer to http://education.[employer]/faq/MDN76w1 (This link is being provided for informational/ educational purposes only.) Blood 04/20/2023 2:50 PM HAIR BLENDER 04/20/2023 2:51 PM HAIR BLENDER Narrative [facility] - 04/22/2023 5:22 PM HAIR BLENDER FASTING:NO FASTING: NO Alexandru Marcelo MD LAB MICROBIOLOGY - GENERAL ORDER JOANNA Final Result [facility] [address] [place] [address] from Last 3 Months or Most Recently Relevant to [place] [address] THIRD LIBERTARIAN LIABILITY - GENERIC Member Subscriber Plan / Payer (Ef fective 2022-Present) Name:Corrie Romero Relation to Subscriber:Self Name:Corrie Romero Payer ID:[id number] Group ID:Not on file Type:OTHER Address: [address] [facility] ACC CHOICE OOS Care Teams Plastics Engineering Teacher Relationship Specialty Start Date End Date Rosio Vela PA [address] [place] [address] PCP - General Physician Poultry Field Service Technician 06/20/24
--- OUTSIDE RECORDS SUMMARY | 2025-04-26 01:38 | XMS_ITS | Clinical Summary ---
Author Organization [facility] Address [address] [place] [address] Care Team Providers Care Manager Discovery Name Role Phone Unavailable Primary Care Provider Unavailabl e Source Comments [facility],non-owned Affiliates and Associated Physician Practices is amultiple site organization consisting of ambulatory clinics and hospital sitesin [place], [place], [place] and [place]. This disclosure is being madepursuant to the Care Everywhere program and may not contain all information available regarding this patient. Last updated 18.[facility] Allergies Active Allergy Reactions Criticality Noted Date [...] on file Legal Sex Female 11:32 AM BLADDER BLOWER Gender Identity Not on file Sexual Orientation Not on file Last Filed Vital Signs Vital Sign Reading Time Taken Comments Blood Pressure 119/83 11/19/2016 9:23 AM CDT Pulse 76 11/19/2016 9:23 AM CDT Temperature 36.6 C (97.9 F) 06/07/2013 11:42 AM BLADDER BLOWER Respiratory Rate 16 06/01/2013 11:06 AM BLADDER BLOWER Oxygen Saturation 97% 11/19/2016 9:23 AM CDT [...] of 3 - 19+ 3-dose series) 1989 PAP SMEAR 1991 Cervical Cancer Screening 2000 PAP with HPV 2000 PNEUMOCOCCAL VACCINE 50+ (1 of 1 - PCV) 2020 ZOSTER VACCINE (1 of 2) 2020 DEPRESSION SCREENING 05/16/2024 COVID-19 VACCINE (1 - 2024-2 6 season) 2025 INFLUENZA VACCINE (#1) 2025 06/01/2013 HIB VACCINE [...] age to complete this topic Insurance ANTHEM ANTHEM ANTHEM ANTHEM Advance Directives * FULL RESUSCITATION (Latest Code Status on File) Date Activated Date Inactivated Comments 05/30/2013 8:30 PM 06/01/2013 1:51 PM * FULL RESUSCITATION Date Activated Date Inactivated Comments 01/24/2013 8:51 PM 01/27/2013 11:57 AM
--- OUTSIDE RECORDS SUMMARY | 2025-04-26 01:38 | XMS_ITS | Clinical Summary ---
Author Organization [employer] [facility] Address [address] [place] [address] Care Team Providers Care Stamping Die Maker Bench Name Role Phone Unavailable Primary Care Provider Unavailabl e Social History Tobacco Use Types Packs/Day Years Used Date Smoking Tobacco: Never Assessed Comments Unknown Sex and Gender Information Value Date Recorded Sex Assigned at Not on file Legal Sex Female 10:04 AM EST Gender Identity Not on file Sexual Orientation Not on file Plan of Treatment Not on file Medical Devices Not on file Insurance [facility]
--- OUTSIDE RECORDS SUMMARY | 2025-04-26 01:38 | XMS_ITS | Clinical Summary ---
Author Organization [facility] Address [address] [place] [address] Care Team Providers Care Bulldozer Engineer Name Role Phone Unavailable Primary Care Provider Unavailabl e Immunizations Immunization Administration Dates Next Due Covid-19, Mrna, Lnp-s, PF, 1 00 mcg/0.5 mL Dose (Moderna) 04/03/2021 Social History Tobacco Use Types Packs/Day Years Used Date Smoking Tobacco: Never Assessed Comments Unknown Sex and Gender Information Value Date Recorded Sex Assigned at Not on file Legal Sex Female 9:06 AM BATCH DUMPER Gender Identity Not on file Sexual Orientation [...] 2020 Zoster Immunization (1 of 2) 2020 Influenza Immunization (#1) 2025 06/01/2013 SARS-COV-2 Immunization (2024- season) 2025 04/03/2021, 08/05/2020, 07/08/2020 Respiratory Syncytial Virus (RSV) Immunization (Adult) (1 - 1-dose 75+ series) 2045 Human Papillomavirus (HPV) Immunization (No Doses Required) Completed Meningococcal Immunization (ACWY) Aged Out No longer eligible b ased on patient's age to complete this topic Rotavirus Immunization Aged Out No lo nger eligible based on patient's age to complete this topic
--- OUTSIDE RECORDS SUMMARY | 2025-04-26 01:38 | XMS_ITS | Patient Health Record ---
Author Organization [facility] Address [address] [place] [address] Care Team Providers Care Bilingual Nanny Name Role Phone CASSY FERNANDEZ Unavailable [phone] Reason For Referral No Information Plan Of Treatment No Information Insurance Providers Payer Name Payer Address Payer Phone Subscriber Number Group Number Insured Name Patient Relationship to Insured Coverage Start Date Coverage End Date [employer] [address] [place] [phone] [id number] FaulknerCorrie dill Self - patient is the insured 5
[2025-04-26] MEDS: ACETAMINOPHEN 500 MG TABLET 1000 MG PO (06:15)
--- NOTE | 2025-04-26 06:34 | WPDHPUPDATE1 ---
History and Physical Update Update Date/Time: 04/26/25 06:34 History and Physical has been reviewed, including an updated exam of the patient. There are NO changes in the patient's condition. Risks, benefits, and alternatives have been discussed and questions answered. Patient agrees to proceed with procedure.
[2025-04-26 06:35] LABS: Hematocrit 41.8 % (37.0-47.0); Hemoglobin 13.4 g/dL (12.0-15.0)
--- NOTE | 2025-04-26 06:50 | WPDANESEPPF ---
Anes - Initial Pre Proc Eval Procedure: Operation Date: 04/26/25 07:30 Proposed Procedures p Hysteroscopy Dilation and Curettage - James Plaza MD Date/Time: 04/26/25 06:50 Surgeon: James Plaza MD Pre Op Diagnosis: post menopausal bleeding Patient Data Age: 54 Gender: F Height: 1.52 m Weight: 56.7 kg Allergies Allergy/AdvReac Type Severity Reaction Status Date / Time aspirin Allergy Severe Swelling Verified 04/23/25 09:09 of Lip/Tongue/Throat ketorolac Allergy Severe Swelling Verified 04/23/25 09:09 of Lip/Tongue/Throat ibuprofen Allergy Swelling Verified 04/23/25 09:09 of Lip/Tongue/Throat Home Medications ?Medication ?Instructions ?Recorded ?Confirmed ?Type bupropion HCl 150 mg tablet,12 hr 150 mg PO DAILY 09/10/19 04/23/25 History sustained-release estradiol 1 mg tablet 1 mg PO DAILY 07/14/22 04/23/25 History levothyroxine 75 mcg tablet 75 mcg PO DAILY 07/14/22 04/23/25 History lisinopril 20 mg tablet 20 mg PO DAILY 07/14/22 04/23/25 History semaglutide (weight loss) 1.7 1.75 mg subcut WEEKLY 07/14/22 04/23/25 History mg/0.75 mL subcutaneous pen injector (Wegovy) cholecalciferol (vitamin D3) 100 100 mcg PO DAILY 04/23/25 04/23/25 History mcg (4,000 unit) capsule ofatumumab 20 mg/0.4 mL 20 mg subcut WEEKLY 04/23/25 04/23/25 History subcutaneous pen injector (Kesimpta Pen) hydrocodone 5 mg-acetaminophen 325 1 tablet PO Q6H PRN pain #10 tabs 04/26/25 Rx mg tablet Laboratory Tests 04/26/25 06:30 Hgb 13.4 g/dL (12.0-15.0) Hct 41.8 % (37.0-47.0) Patient hx anesthesia problems: none Family hx anesthesia problems: none Results Review: All pre-operative results and documents have been reviewed as part of the pre-operative evaluation. [facility] Past Medical History Medical History Colon cancer screening Hypothyroid Anxiety Multiple sclerosis Surgical History Surgical History History of 2 sections 2004, 2006 History of gastric restrictive surgery 2010 History of hernia repair 2018 History of cholecystectomy 2018 History of hip surgery 2019 Family History Family History Other Hypertension Social History Social History Smoking status: Never smoker Alcohol intake: never Substance use: never Substance use type: does not use Living arrangements: with family Gender identity (if verbalized by the patient): Female Spiritual care concerns: No Anes - Eval Final PreProcedure Day of Procedure 04/26/25 06:50 Patient weight: normal Heart: regular rate and rhythm Lungs: clear to auscultation Airway: Mallampati scale class II Neurological: alert and oriented Last oral intake: >/= 8 hours ASA classification: III Emergent: no Anesthetic plan: proceed Anesthesia type and monitoring: general GIVS and standard monitoring Results Review: All pre-operative results and documents have been reviewed as part of the pre-operative evaluation. Informed Consent: The patient's anesthetic plan and its attendant risks and benefits were discussed with the patient/family/POA. Questions were solicited and answers provided to the satisfaction of the patient/family/POA.
[2025-04-26 06:54] VITALS: BP 129/80; PULSE 76; RESP 16; TEMP 36.8; O2SAT 100; BMI 25.0
[2025-04-26] MEDS: LIDOCAINE 1% LOCAL INJ 10 ML VIAL INFILTRATE (07:43)
--- NOTE | 2025-04-26 07:47 | S_PTH ---
PATIENT: Corrie Castañeda LOC: [facility]#:[id number] AGE/SX: 54/F ROOM: RE04/26/[address]: James Plaza MD : 1970 BED: DIS: 04/26/2025 SPEC #: [id number] RECD: 04/26/25 08:59 STATUS: CHINYERE REQ #: [id number] PADMINI: 04/26/25 07:[address]: James Mark DEPT: [facility] Surgical RECD BY: Jesusita Carbone ENTERED: 04/26/25 09:00 SP TYPE: Surgical OTHR DR: Rosio Vela, PAChelleC Tissues: A - Endometrial Curettings Procedures: Hematoxylin and Eosin Stain Gross and Microscopic Level 4
[2025-04-26 07:54] VITALS: BP 116/63; PULSE 74; RESP 14; O2SAT 99
--- NOTE | 2025-04-26 07:54 | P.OP_ITS ---
Procedure Note - Detailed Date of Procedure 04/26/25 Pre-op Diagnosis post menopausal bleeding Post-op Diagnosis Same Procedure Performed Hysteroscopy/dilatation curettage Surgeon James Plaza MD Anesthesia MAC and Local Indications 54-year-old female with postmenopausal bleeding Findings Benign appearing endometrium with each fallopian tube os seen abnormality Description of Procedure The patient was prepped draped in the normal sterile fashion placed in dorsal lithotomy position. Under excellent IV sedation weighted speculum placed in posterior fornix vagina. Anterior lip of the cervix grasped with the single- tooth tenaculum 2.5cc 1% xylocaine anesthesia placed at 2, 4, 8, 10:00 a.m. of the cervix. Uterus sounded to 8cm. Serial dilatation fragmented dilators performed followed by passes the 5mm visualizing hysteroscope using normal saline as visualizing medium. No abnormalities were seen the uterus was then scraped over the entire 360? removing a very small amount of tissue was expected for a woman of this age. The instruments withdrawn blood loss was estimated 5cc. All sponge, needle, instrument counts were correct. There were no immediate complications Estimated Blood Loss 5 Drains No Packing No Pathology Yes Complications No immediate complications Condition Stable Disposition PACU
[2025-04-26 08:25] VITALS: BP 113/75; PULSE 69; RESP 16
[2025-04-26 08:55] VITALS: BP 126/80; PULSE 66; RESP 16
[2025-04-26 09:10] VITALS: BP 115/55; PULSE 63; RESP 16
== END 2025-04-26 09:23 | disposition home or self-care (01) ==
PROVIDERS: PCP Physician Assistant; Visit Provider Obstetrics & Gynecology
PROC: 0U5B8ZZ Destruction of Endometrium, Via Natural or Artificial Opening Endoscopic (ICD-10-PCS; CPT 58563; principal; 2025-04-26 07:30)
DX: N95.0 Postmenopausal bleeding (principal); N85.8 Other specified noninflammatory disorders of uterus
CPT/HCPCS: 58558; 36415; 85014; 85018; 88305; A9270; J2003; J2250; J2704; J3010